=== PATIENT | male | born 1940 | race Caucasian/White ===

== ENCOUNTER 2020-01-04 08:59 | Outpatient (CLI) | payer MEDICARE, OTHER, SELFPAY ==
--- NOTE | ~2020-01-04 | CT_ITS ---
EXAMINATION: CT lumbar spine wo [facility] EXAM DATE: 01/04/2020 09:19 INDICATION: Low back pain, sciatica. Effusion. TECHNIQUE: Spiral CT of the lumbar spine was performed without contrast. Axial, coronal and sagittal images were reviewed. The dose-length product (DLP) for this examination was 475.09 mGy-cm. The e xposure was tailored according to patient size (auto mA exposure control), and iterative reconstructi on (ASIR) was used as additional dose reduction technique. There is no prior study for comparison. FINDINGS: Patient has posterior fusion and laminectomies L1-L5. There is also some solid bone bridgin g of the L2-4 vertebral bodies. There is moderate to severe disc disease at L4-5 and L5-S1, moderate at T12-L1 and L1-2. No lucency surrounding the screw tracks. There is 3 mm retrolisthesis L5 on S1 an d T12 on L1. There are no acute fractures identified. The bladder is severely distended and there is moderate bilateral hydroureteronephrosis. Level by level evaluation: T12-L1: There is a moderate diffuse disc bulge. Facet arthropathy: Moderate. Neural foraminal stenosis: Moderate to severe right, moderate left. Central canal stenosis: Moderate. L1-L2: There is a mild diffuse disc bulge. Facet arthropathy: Fused. Neural foraminal stenosis: No stenosis. Central canal stenosis: No stenosis. Posterior decompression. L2-L3: This level is fused. Facet arthropathy: Fused. Neural foraminal stenosis: No stenosis. Central canal stenosis: No stenosis. Posterior fusion L3-L4: This level is fused. Facet arthropathy: Fused. Neural foraminal stenosis: Moderate left. Central canal stenosis: No stenosis. Posterior decompression L4-L5: There is a moderate diffuse disc bulge. Facet arthropathy: Moderate to severe. Neural foraminal stenosis: Moderate bilateral. Central canal stenosis: Mild. L5-S1: There is a moderate diffuse disc bulge. Facet arthropathy: Moderate. Neural foraminal stenosis: Moderate to severe left, moderate right. Central canal stenosis: Mild. IMPRESSION: 1. Severely distended bladder with moderate bilateral hydroureteronephrosis. Could be result of cotton tipper mei bladder outlet obstruction? Consider consult. 2. Intact fusion L1-L4, laminectomies. 3. Moderate to severe lumbar spondylosis. Reviewed, dictated and finalized at location A. IMPRESSION: 1. Severely distended bladder with moderate bilateral hydroureteronephrosis. C ould be result of chronic bladder outlet obstruction? Consider consult. 2. Intact fusion L1-L4, laminectomies. 3. Moderate to severe lumbar spondylosis.
== END 2020-01-04 09:00 | disposition home or self-care (01) ==
LOC: ANHIMG 09:04
PROVIDERS: PCP Family Medicine; Visit Provider Family Medicine
DX: G89.29 Other chronic pain (principal); M54.41 Lumbago with sciatica, right side; Z98.1 Arthrodesis status; M47.896 Other spondylosis, lumbar region
CPT/HCPCS: 72131

== ENCOUNTER 2020-01-11 06:43 | Emergency (ER) | payer MEDICARE, OTHER, SELFPAY ==
[2020-01-11] VITALS (39 sets, daily range): BP systolic 74–133; BP diastolic 45–68; PULSE 52–66; RESP 12–20; O2SAT 92–100
--- NOTE | ~2020-01-11 | CT_ITS ---
EXAMINATION: CT brain wo con EXAM DATE: 01/11/2020 07:44 INDICATION: Temporary episode unresponsiveness. Dizziness. TECHNIQUE: Spiral CT of the head was performed without contrast. Axial, coronal and sagittal images were reviewed. The dose-length product (DLP) for this examination was 605.33 mGy-cm. The exposure w as tailored according to patient size, and iterative reconstruction (ASIR) was used as additional dos e reduction technique. There is no prior study for comparison. FINDINGS: There is a mass which appears to be most likely extra-axial, overlying the left frontal lob e, measuring up to 4 cm which is heterogeneous in density. This is most likely a meningioma but recom mend nonemergent follow-up evaluation with MRI brain without and with contrast. There is no acute intraparenchymal hemorrhage. No evidence of acute infarction. Please note that in itial head CT has limited sensitivity for small or acute infarctions. There is mild periventricular a nd subcortical hypodensity, nonspecific but probably related to small vessel ischemic disease. Ther e is mild prominence of the sulci and ventricles related to cerebral atrophy. There is intracranial carotid arteriosclerosis. There are no extra-axial collections. There is no mass effect or midline shift. The orbits are unremarkable. Soft tissue is unremarkable. The visualized sinuses and masto id air cells are well aerated. IMPRESSION: 1. Large mass most likely meningioma overlying left frontal lobe. This could be an incidental findin g not related to patient's symptoms reported above. Follow-up nonemergent brain MRI without and with contrast recommended. 2. Chronic age related findings. 3. No acute findings. Reviewed, dictated and finalized at location A. IMPRESSION: 1. Large mass most likely meningioma overlying left frontal lobe. This could b e an incidental finding not related to patient's symptoms reported above. Follo w-up nonemergent brain MRI without and with contrast recommended. 2. Chronic age related findings. 3. No acute findings.
--- NOTE | ~2020-01-11 | XR_ITS ---
EXAMINATION: XR chest 1V EXAM DATE: 01/11/2020 07:51 INDICATION: Syncope. TECHNIQUE: Portable AP frontal chest x-ray was obtained. Comparison is made to prior examination from 08/30/2010. FINDINGS: The lungs are clear. There are no pleural effusions. Cardiac silhouette is prominent but magnified on this AP technique. There is no pneumothorax suspected. The bones and soft tissues are unremarkable. Lumbar fusion hardware. IMPRESSION: No acute cardiopulmonary findings. Reviewed, dictated and finalized at location A.
--- NOTE | 2020-01-11 06:50 | ECG_ITS ---
Measurements Intervals [place] Rate: 55 P: 51 ND: 192 QRS: 42 QRSD: 111 T: 42 QT: 483 QTc: 462 Interpretive Statements SINUS BRADYCARDIA MINIMAL Q WAVES- HIGH LATERAL LEADS ANTEROSEPTAL INFARCT, AGE INDETERMINATE ABNORMAL ECG Electronically Signed On 01-11-2020 6:55:40 CDT by Ricardo Ball D.O.
[2020-01-11 07:07] LABS: Basophils Percent Auto 0.3 % (0.2-1.2); Eosinophils Percent Auto 0.2 % (0-4.4); Hematocrit 38.2 % (42.0-52.0); Hemoglobin 13.4 g/dL (14.0-18.0); Immature Granulocyte Absolute 0.05 K/mm3 (0.00-0.031); Immature Granulocyte Percent A 0.4 % (0-0.5); Lymphocytes Absolute Auto 1.41 K/mm3 (0.9-3.2); Lymphocytes Percent Auto 12.3 % (18.3-44.2); Mean Corpuscular HGB Conc 35.1 g/dl (32-36); Mean Corpuscular Volume 94.1 fl (80-100); Mean Platelet Volume 10.9 fl (7.4-10.4); Monocytes Absolute Auto 0.9 K/mm3 (0.1-0.6); Monocytes Percent Auto 7.7 % (2.6-8.5); Neutrophils Absolute Auto 9.1 K/mm3 (1.3-6.7); Neutrophils Percent Auto 79.1 % (45.5-73.1); Platelet Count Result 197 k/mm3 (150-375); Red Blood Count 4.06 M/mm3 (4.6-6.20); Red Cell Distribution Width 13.4 % (11.5-14.5); White Blood Count 11.5 K/mm3 (4.5-10.0)
[2020-01-11 07:18] LABS: Anion Gap 14.2 mmol/L (7-16); Blood Urea Nitrogen 14 mg/dL (9-20); Calcium 8.8 mg/dL (8.4-10.2); Carbon Dioxide 25 mmol/L (22-30); Chloride 91 mmol/L (98-107); Estimated Glomerular Filt Rate > 60; Glucose 147 mg/dL (75-110); Potassium 4.2 mmol/L (3.4-5.0); Sodium 126 mmol/L (137-145)
[2020-01-11] MEDS: SODIUM CHLORIDE 0.9% IV 1,000 ML 999 ML IV CONT ×2 (07:30→08:39)
--- NOTE | 2020-01-11 07:38 | ED.SYNCOPE ---
HPI - Syncope General Chief Complaint: Syncope Stated Complaint: DIZZY Time Seen by Provider: 01/11/20 07:26 History of Present Illness HPI narrative: Patient presents via EMS with his for a near syncopal episode at home this morning. He was getting up to go to the bathroom and on the way back he felt too weak to get out of the bed. They called for lift assist, and he was diaphoretic and hypotensive. He did not have preceding symptoms. He said he had poor urine output. He wears depends at night. He has had a TURP procedure in the past. He has had no COVID exposure. He has not been sick in the last couple weeks. He does not take a diuretic. His has his med list which includes metoprolol. He said his appetite is poor, but is not losing weight. He has had 3 days of constipation. No cough cold fever or chills. He has a history of umbilical and inguinal hernia, TURP, and lumbar fusion. Does not smoke cigarettes, rarely drinks alcohol, does not do marijuana. He is retired. complaint: felt faint, almost passed out and collapsed Onset (ago): hour(s) Prodromal symptoms: none Context: after urination Injuries sustained associated with event: none Current symptoms: none Treatments prior to arrival: none Related Data Home Medications Medication Instructions Recorded Confirmed tamsulosin 0.4 mg capsule 0.4 mg PO DAILY 04/15/19 12/29/19 Allergies Allergy/AdvReac Type Severity Reaction Status Date / Time No Known Allergies Allergy Verified 01/11/20 06:47 Review of Systems Review of Systems: Narrative: CONSTITUTIONAL: Denies fever, chills, but did have the sweats after he laid down. EYES: Denies visual changes, redness, or discharge. ENT: Denies rhinorrhea, congestion, sore throat, or otalgia. CARDIOVASCULAR: Denies chest pain, palpitations, or edema. RESPIRATORY: Denies cough or dyspnea. GASTROINTESTINAL: Denies abdominal pain, nausea, vomiting, or diarrhea. GENITOURINARY: Denies dysuria or hematuria. SKIN: Denies rash or itching. MUSCULOSKELETAL: Denies back pain, joint pain, or myalgia. NEUROLOGIC: Denies headache, numbness, or weakness. PSYCHIATRIC: Denies anxiety or depression. All systems reviewed & are unremarkable except as noted in HPI and below PMFSH Past Medical History Medical History (Updated 01/11/20 @ 10:08 by Felicitas Mayfield MD) Abnormal fasting glucose BPH without obstruction/lower urinary tract symptoms Cardiomyopathy Chronic low back pain with right-sided sciatica Heart murmur on physical examination Hypothyroidism, unspecified Nocturia Polyp of colon Surgical History Surgical History History of hernia surgery History of lumbar fusion Social History Social History (Updated 01/11/20 @ 07:42 by Felicitas Mayfield MD) Smoking status: Never smoker Alcohol intake: current Substance use: never Exam Narrative: Exam Narrative: GENERAL: Well-appearing, well-nourished, and in no acute distress. HEAD: Normocephalic, atraumatic. EYES: PERRLA and EOMI. ENT: Nares clear, no rhinorrhea or epistaxis. Mucous membranes moist. NECK: Supple. CHEST: Clear to auscultation. No respiratory distress. HEART: Regular rate and rhythm. No murmur heard. Normal peripheral pulses. ABDOMEN: Soft, nontender, nondistended, normal active bowel sounds. EXTREMITIES: Normal range of motion. No edema. SKIN: Warm, dry, no rash. NEURO: No focal deficits. Alert and oriented x3. PSYCH: Normal mood and affect. Course Reevaluation(s) Reevaluation #1: Went back in the room to tell the patient about his left frontal mass. He is never had a CAT scan of his brain before. He asked how long it is been there. I recommended that he have an MRI in the future to further define it. He is unable to provide urine. We will give another liter of normal saline, and encourage oral hydration. Date: 01/11/20 Time: : Consultations Consultation #1: Call Dr. Bo and talk
[2020-01-11 08:04] LABS: Creatine Kinase 104 U/L (55-170)
[2020-01-11 08:06] LABS: INR 1.2; Prothrombin Time 15.2 Seconds (11.1-14.7)
[2020-01-11 08:51] LABS: Troponin I < 0.012 ng/mL (0.000-0.034)
[2020-01-11 09:36] LABS: Add Urine Microscopic? YES; Appearance Urine Cloudy (Clear); Bacteria Urine Trace /hpf; Bilirubin Urine Negative (Negative); Blood Urine 3+ (Negative); Color Urine Yellow (Yellow); Glucose Urine UA Negative (Negative); Ketones Urine Negative (Negative); Leukocyte Esterase Ur 3+ LEU/UL (Negative); Mucus Urine Rare /lpf; Nitrate Urine Positive (Negative); Protein Urine 1+ mg/dL (Negative); RBC Urine >75 /hpf (0-2); Urobilinogen Urine Negative mg/dL (<2.0); WBC Clumps Urine Present /HPF; WBC Urine >75 /hpf
[2020-01-11 11:09] LABS: Troponin I < 0.012 ng/mL (0.000-0.034)
[2020-01-11 11:31] LABS: Total Triiodothyronine (T3) 0.71 NG/ML (0.97-1.69)
== END 2020-01-11 12:03 | disposition home or self-care (01) ==
PROVIDERS: Emergency Medicine; Emergency Provider Emergency Medicine; PCP Family Medicine
DX: R55 Syncope and collapse (principal); E87.1 Hypo-osmolality and hyponatremia; E86.0 Dehydration; N39.0 Urinary tract infection, site not specified; R94.31 Abnormal electrocardiogram [ECG] [EKG]; E03.9 Hypothyroidism, unspecified
CPT/HCPCS: 36415; 70450; 71045; 80048; 81001; 82550; 84439; 84443; 84480; 84484; 85025; 85610; 87077; 87086; 87088; 87186; 93005; 96361; 96365; 99284; J0696; J7030

== ENCOUNTER 2020-01-31 13:47 | Outpatient (CLI) | payer MEDICARE, OTHER, SELFPAY ==
--- NOTE | ~2020-01-31 | MR_ITS ---
EXAMINATION: MR lumbar spine wo [facility] EXAM DATE: 01/31/2020 14:33 INDICATION: Low back pain, history spinal fusion. TECHNIQUE: Multi-sequential, multiplanar MR images of the lumbar spine were obtained without contrast . Sagittal T1, T2, T2 fat saturation images. Axial T2 weighted images. There is no prior study for comparison. FINDINGS: Posterior fusion hardware and laminectomies L1-L4. Moderate to severe disc disease at T10-1 1, T12-L1, L3-S1. There is Moderate at T11-12 and L1-2. Reversal of normal lumbar lordosis. The L2-3 vertebral bodies are have partial bony fusion. There is 3 mm retrolisthesis L5 on S1. The conus medul demario terminates at the L1/2 level and has normal signal intensity and morphology. There are no susp icious marrow signal abnormalities. Paraspinal soft tissue is unremarkable. Level by level evaluation: T12-L1: There is a moderate diffuse disc bulge. Facet arthropathy: Moderate . Ligamentum flavum enlargement. Neural foraminal stenosis: Moderate right, moderate left. Central canal stenosis: Moderate. L1-L2: Disc does not extend beyond the endplate margin. Facet arthropathy: Poorly visualized. Neural foraminal stenosis: No stenosis. Central canal stenosis: No stenosis. Posterior decompression. L2-L3: There is a mild diffuse disc bulge. Facet arthropathy: Poorly visualized. Neural foraminal stenosis: Mild left. Central canal stenosis: No stenosis. Posterior decompression L3-L4: There is a mild diffuse disc bulge. Facet arthropathy: Poorly visualized. Neural foraminal stenosis: Mild to moderate left. Central canal stenosis: No stenosis. Posterior decompression L4-L5: There is a moderate diffuse disc bulge. Facet arthropathy: Moderate to severe. Neural foraminal stenosis: Moderate bilateral. Central canal stenosis: Mild. L5-S1: There is a mild to moderate diffuse disc bulge. Facet arthropathy: Mild to moderate. Neural foraminal stenosis: Moderate bilateral. Central canal stenosis: Mild. IMPRESSION: 1. Surgical changes L1-4. 2. Advanced lumbar spondylosis. Reviewed, dictated and finalized at location B.
== END 2020-01-31 13:48 | disposition home or self-care (01) ==
PROVIDERS: PCP Family Medicine; Visit Provider Orthopaedic Surgery
DX: M47.896 Other spondylosis, lumbar region (principal)
CPT/HCPCS: 72148

== ENCOUNTER → 2020-04-23 12:18 | Outpatient (CLI) | payer MEDICARE, OTHER, SELFPAY ==
--- NOTE | ~2020-04-23 | MR_ITS ---
EXAMINATION: MR brain IAC wo/w con DATE: 04/23/2020 13:28 INDICATION: Dizziness. Intracranial mass. TECHNIQUE: Magnetic resonance imaging (MRI) of the brain, brainstem, and internal auditory canals was performed without and with 14 mL MultiHance intravenous contrast. Sequences included sagittal and ax ial T1-weighted FSE, axial diffusion-weighted FS EPI, axial T2*-weighted GRE, axial T2-weighted FLAIR Propeller, axial T2-weighted Propeller, small rwiiv-ij-lypx coronal FIESTA, small duykl-bz-kvlq merline nal T1-weighted FSE, and small ampov-zf-xqxr axial T1-weighted SPGR. Postcontrast sequences included axial T1-weighted FSE, small scfnf-ml-yefw coronal T1-weighted FSE, and small nzusa-kh-atlz axial T1- weighted SPGR. Apparent diffusion coefficient (ADC) maps were created. COMPARISON: Head CT 01/11/2020 FINDINGS: There is a 4.1 x 4.0 x 3.5 cm enhancing extra-axial mass with dural tails and areas of calc ification overlying left frontal lobe, consistent with a meningioma. There is no acute ischemic infar ct or intracranial hemorrhage. There are scattered areas of nonspecific increased T2-weighted signal intensity in the cerebral white matter. The ventricles are normal in size. There is mild mucosal thic kening in the paranasal sinuses. There are likely changes of ocular lens replacement surgeries. The i nternal auditory canals and inner and middle ears are normal. The mastoid air cells are normal. IMPRESSION: 1. 4.1 cm meningioma overlying left frontal lobe. 2. Moderate nonspecific cerebral white matter disease, which likely represents chronic small vessel i schemic disease. Reviewed, dictated and finalized at location B. [employer] IMPRESSION: 1. 4.1 cm meningioma overlying left frontal lobe. 2. Moderate nonspecific cerebral white matter disease, which likely represents chronic small vessel ischemic disease.
[2020-04-23 12:55] LABS: Estimated Glomerular Filt Rate > 60
== END ==
PROVIDERS: PCP Family Medicine; Visit Provider Family Medicine
DX: G93.89 Other specified disorders of brain (principal); R93.0 Abnormal findings on diagnostic imaging of skull and head, not elsewhere classified
CPT/HCPCS: 70553; A9577

== ENCOUNTER → 2020-11-22 13:21 | Outpatient (CLI) | payer MEDICARE, SELFPAY ==
--- NOTE | ~2020-11-22 | MR_ITS ---
EXAMINATION: MR brain/brain stem wo/w con EXAM DATE: 11/22/2020 14:25 INDICATION: Meningioma. TECHNIQUE: Magnetic resonance imaging (MRI) of the brain/brain stem obtained without contrast. Sagit roberto T1, axial diffusion, gradient echo (T2*), T1, T2, FLAIR sequences obtained. Patient was then inj ected with 14 cc intravenous Multihance contrast. Axial and coronal postcontrast T1 weighted sequence s obtained. Comparison is made to prior examination from 04/23/2020. FINDINGS: Again there is extra-axial mass consistent with meningioma, pushing into displacing left fr ontal lobe brain parenchyma. Round, slightly lobular but well-defined margins measuring up to 4.0 x 3 .8 greatest axial dimensions, unchanged (dimensions reported on prior study at 4.1 x 4.0 x 3.5 cm). N o associated vasogenic edema within the left frontal lobe, indicating that this is indolent, slow-leila wing process, or has stopped growing. No other areas of abnormal enhancement. There is no acute hemorrhage seen on the T2*, a susceptibility sensitive sequence. Flow voids are see n in the cerebral arteries on the T2 weighted sequences consistent with their expected patency. Bilat eral cataract surgery. Mild sinus mucoperiosteal thickening. Mild to moderate microangiopathy in mild cerebral atrophy. Posterior fossa unremarkable. IMPRESSION: Large meningioma overlying left frontal lobe unchanged. Reviewed, dictated and finalized at location A.
[2020-11-22 13:56] LABS: Estimated Glomerular Filt Rate > 60
== END ==
PROVIDERS: PCP Family Medicine
DX: D32.9 Benign neoplasm of meninges, unspecified (principal)
CPT/HCPCS: 70553; A9577

== ENCOUNTER 2021-11-06 11:28 | Outpatient (CLI) | payer MEDICARE, SELFPAY ==
--- NOTE | 2021-11-06 11:34 | ECG_ITS ---
Measurements Intervals [place] Rate: 44 P: -31 MO: 366 QRS: 8 QRSD: 105 T: 13 QT: 478 QTc: 412 Interpretive Statements SINUS BRADYCARDIA MINIMAL Q WAVES- ANTEROLAT/HIGH LAT LEADS BASELINE ARTIFACT- I, II, III, AVR, AVL, AVF ABNORMAL ECG Electronically Signed On 11-06-2021 12:21:23 CDT by Ricarod Ball D.O.
== END 2021-11-06 11:29 | disposition home or self-care (01) ==
PROVIDERS: PCP Family Medicine; Visit Provider Urology
DX: I10 Essential (primary) hypertension (principal); Z01.818 Encounter for other preprocedural examination; R94.31 Abnormal electrocardiogram [ECG] [EKG]
CPT/HCPCS: 93005

== ENCOUNTER 2021-11-14 01:20 | Day surgery (SDC) | payer MEDICARE, SELFPAY ==
[2021-11-06 09:35] VITALS: BMI 24.3
--- NOTE | 2021-11-06 09:43 | PC.NURSE ---
Report to the Outpatient Waiting Room, entrance under the green pavilion located off [facility], at time _0700_ on date _11/14/21_. OR Time: _0900_. - You and your visitor will be asked a series of questions to screen for COVID 19 for your protection. - Only one visitor is allowed at this time. - The patient visitor is requested to leave or wait in car when not with patient. - A mask is required within the hospital. Patients may have clear liquids (water, carbonated beverages, clear teas, apple juice) until 3 hours prior to surgery (0600 AM) with a maximum of 20 ounces. - No food from midnight until time of surgery Take the following medications with a SIP of water the morning of surgery: __LEVOTHYROXINE, METOPROLOL__ Medications to discontinue per physician N/A , Date to take last dose Please no deodorant, or body powder the day of surgery. No jewelry (including any body piercings) or valuables the day of surgery, leave them at home. Please take a shower or bath the night before, or the morning of, surgery with an antibacterial soap. Wear comfortable, loose fitting clothing. - Jewelry must be removed prior to entering the operating room. Rings and piercings that are not removed may be cut off. - The hospital will not accept responsibility for valuables. - Please leave all valuables, including medications, at home the day of surgery. If you are going home after surgery, a licensed driver utility worker must drive you home. - NO public transportation without another adult. - We recommend that an adult stay with you for 24 hours following discharge. - We also recommend that you do not drive, make important decision, drink alcoholic beverages, or take any drugs that were not prescribed by your health care provider for at least 24 hours after your discharge time. Follow any additional instructions given to you from your surgeon. If you or anyone in your household have experienced Covid symptoms in the past week, please notify your surgeon or the nurse liaison at the phone number below for possible testing. Telephone instructions given to ___PT and asked if any additional questions and then verbalized understanding. Patient advised to call surgeon office or pre surgery nurse liaison [phone] if any additional questions.
--- NOTE | 2021-11-07 07:09 | PM.IMHP ---
H&P: HPI History of Present Illness Date/Time: 11/07/21 07:09 Chief Complaint: Difficulty urinating and recurrent urinary tract infections Narrative: pleasant 81-year-old stone who is status post TURP in 2014. He did well for several years and now presents with recurrent difficulty voiding and recurrent urinary tract infections. He did develop urinary retention approximately 6 months ago but that resolved with stopping oxybutynin. He now has residual volumes of approximately 850 cc and has failed to respond to tamsulosin. Have a suspicion of urethral stricture/bladder neck contracture, answer decision to proceed with cystoscopy and urethral dilatation. He is aware the risk including, but not limited to, persistent difficulty voiding, recurrent stricture and hematuria. Review of Systems Cardiovascular: Cardiovascular: Denies chest pain, Denies lightheadedness, Denies palpitations and Denies dyspnea Respiratory: Respiratory: Denies dyspnea Gastrointestinal: Gastrointestinal: Denies diarrhea, Denies nausea and Denies vomiting Genitourinary: Genitourinary: Denies hematuria and Denies dysuria Endocrine: Endocrine: Denies palpitations PMFSH Past Medical History Medical History Abnormal fasting glucose Acute bronchitis BMI 24.0-24.9, adult BMI 25.0-25.9,adult BPH without obstruction/lower urinary tract symptoms Cardiomyopathy Chronic low back pain with right-sided sciatica Contact dermatitis and eczema due to plant Essential (primary) hypertension Frontal mass of brain Glaucoma Heart murmur on physical examination Echocardiogram 04/28/2019 with mild aortic and tricuspid valve regurgitation Hypothyroidism, unspecified Meningioma Nocturia Overactive bladder Polyp of colon Pulmonary asbestosis Urinary retention UTI (urinary tract infection) Surgical History Surgical History History of hernia surgery History of lumbar fusion Family History Family History Father Family history of alcoholism, Onset Age: 68 Mother Cerebrovascular accident, Onset Age: 88 Social History Social History Smoking status: Never smoker Second hand tobacco smoke exposure: No Alcohol intake: current Alcohol use details: STATES MAYBE 1-2 BEERS A MONTH Substance use: never Substance use type: does not use Spiritual care concerns: No Meds Home Medications and Allergies Home Medications Medication Instructions Recorded Confirmed Type tamsulosin 0.4 mg capsule (Flomax) 0.4 mg PO QAM 08/24/21 11/06/21 History cephalexin 500 mg capsule 1 cap HS 11/06/21 11/06/21 History levothyroxine 100 mcg tablet 100 mcg PO QAM 11/06/21 11/06/21 History metoprolol succinate 25 mg 25 mg PO QAM 11/06/21 11/06/21 History tablet,extended release 24 hr Allergies Allergy/AdvReac Type Severity Reaction Status Date / Time No Known Allergies Allergy Verified 11/06/21 09:32 Exam Const: General: no acute distress Resp: Effort & Inspection: normal respiratory effort GI: Inspection: non-distended GI Palp: No abdominal tenderness and No Guarding due to palpation present (GI) Auscultation: normal bowel sounds Assessment and Plan Assessment and plan (1) Urinary retention: Code(s): R33.9 - Retention of urine, unspecified Status: Acute Assessment and Plan: Cystoscopy with urethral dilatation
[2021-11-14] VITALS (8 sets, daily range): BP systolic 100–137; BP diastolic 57–71; PULSE 44–52; RESP 16–20; TEMP 36.1–36.4; O2SAT 94–99
--- NOTE | 2021-11-14 06:31 | WPDHPUPDATE1 ---
History and Physical Update Update Date/Time: 11/14/21 06:31 History and Physical has been reviewed, including an updated exam of the patient. There are NO changes in the patient's condition. Risks, benefits, and alternatives have been discussed and questions answered. Patient agrees to proceed with procedure.
[2021-11-14] MEDS: LACTATED RINGERS 1,000 ML 30 ML IV CONT (07:15)
--- NOTE | 2021-11-14 07:57 | WPDANESEPPF ---
Anes - Initial Pre Proc Eval Procedure: Operation Date: 11/14/21 09:00 Proposed Procedures p Cystoscopy, Urethral Dilatation - Dhaval Bo MD Date/Time: 11/14/21 07:57 Surgeon: Dhaval Bo MD Pre Op Diagnosis: bph Patient Data Age: 81 Gender: M Height: 1.73 m Weight: 70.8 kg Last Vital Signs Temp 36.4 C 11/14/21 07:15 Pulse 51 L 11/14/21 07:15 Resp 18 11/14/21 07:15 BP 113/71 11/14/21 07:15 Pulse Ox 99 11/14/21 07:15 O2 Del Method Room Air 11/14/21 07:15 Allergies Allergy/AdvReac Type Severity Reaction Status Date / Time No Known Allergies Allergy Verified 11/14/21 07:40 Home Medications Medication Instructions Recorded Confirmed Type tamsulosin 0.4 mg capsule (Flomax) 0.4 mg PO QAM 08/24/21 11/06/21 History cephalexin 500 mg capsule 1 cap HS 11/06/21 11/06/21 History levothyroxine 100 mcg tablet 100 mcg PO QAM 11/06/21 11/14/21 History metoprolol succinate 25 mg 25 mg PO QAM 11/06/21 11/14/21 History tablet,extended release 24 hr Patient hx anesthesia problems: none Family hx anesthesia problems: none Results Review: All pre-operative results and documents have been reviewed as part of the pre-operative evaluation. [facility] Past Medical History Medical History Abnormal fasting glucose Acute bronchitis BMI 24.0-24.9, adult BMI 25.0-25.9,adult BPH without obstruction/lower urinary tract symptoms Cardiomyopathy Chronic low back pain with right-sided sciatica Contact dermatitis and eczema due to plant Essential (primary) hypertension Frontal mass of brain Glaucoma Heart murmur on physical examination Echocardiogram 04/28/2019 with mild aortic and tricuspid valve regurgitation Hypothyroidism, unspecified Meningioma Nocturia Overactive bladder Polyp of colon Pulmonary asbestosis Urinary retention UTI (urinary tract infection) Surgical History Surgical History History of hernia surgery History of lumbar fusion Family History Family History Father Family history of alcoholism, Onset Age: 68 Mother Cerebrovascular accident, Onset Age: 88 Social History Social History Smoking status: Never smoker Second hand tobacco smoke exposure: No Alcohol intake: current Alcohol use details: STATES MAYBE 1-2 BEERS A MONTH Substance use: never Substance use type: does not use Living arrangements: with family Spiritual care concerns: No Anes - Eval Final PreProcedure Day of Procedure 11/14/21 07:57 Patient weight: normal Heart: regular rate and rhythm Lungs: clear to auscultation Neurological: alert and oriented Last oral intake: >/= 8 hours ASA classification: II Emergent: no Anesthetic plan: proceed Anesthesia type and monitoring: general and standard monitoring Results Review: All pre-operative results and documents have been reviewed as part of the pre-operative evaluation. Informed Consent: The patient's anesthetic plan and its attendant risks and benefits were discussed with the patient/family/POA. Questions were solicited and answers provided to the satisfaction of the patient/family/POA.
[2021-11-14] MEDS: ceFAZolin 2 GM/D5W 50 ML 2 GM/50 ML BAG IVPB (08:19)
[2021-11-14] MEDS: LIDOCAINE HCL 2% GEL UROJET 10 ML PKG MUCOUS MEM (08:37)
--- NOTE | 2021-11-14 08:44 | W.PM.PROC2 ---
Procedure Note - Detailed Date of Procedure 11/14/21 Pre-op Diagnosis Urethral stricture / bladder neck contracture Post-op Diagnosis Same Procedure Performed Cystoscopy, urethral dilatation Surgeon Dhaval Bo MD Description of Procedure The patient was brought to the operative suite where he was prepped and draped in a routine sterile fashion while in a dorsal lithotomy position after the uneventful induction of a general LMA anesthetic. Cystoscopy was undertaken with a 19F rigid cystoscope. There is a moderately constricting bladder neck contracture with a previously resected prostate.. The prostatic urethral estimated length was 1.0cm. The bladder itself was endoscopically normal without foreign body or neoplasm. The bladder mucosa was without hyperemia. There was a single orthotopic ureteral orifice bilaterally with clear efflux of urine. The bladder muscle, however, is densely trabeculated. Using the Abhishek sounds I dilated the urethra and bladder neck from 14->30F. The bladder was emptied and the patient was taken to the recovery room in good condition Pathology None sent Complications No immediate complications Condition Stable Disposition PACU
== END 2021-11-14 10:56 | disposition home or self-care (01) ==
PROVIDERS: PCP Family Medicine; Visit Provider Urology
PROC: 0T7D8ZZ Dilation of Urethra, Via Natural or Artificial Opening Endoscopic (ICD-10-PCS; CPT 52281; principal; 2021-11-14 09:00)
DX: N35.919 Unspecified urethral stricture, male, unspecified site (principal); N32.0 Bladder-neck obstruction; N40.0 Benign prostatic hyperplasia without lower urinary tract symptoms; I42.9 Cardiomyopathy, unspecified; I10 Essential (primary) hypertension; H40.9 Unspecified glaucoma; E03.9 Hypothyroidism, unspecified; J61 Pneumoconiosis due to asbestos and other mineral fibers; D32.0 Benign neoplasm of cerebral meninges; Z98.1 Arthrodesis status
CPT/HCPCS: 52281; 51702; 81003; 93005; 99283; A9270; J0690; J1100; J2405; J2704; J7120

== ENCOUNTER 2021-11-14 20:48 | Emergency (ER) | payer MEDICARE, SELFPAY ==
[2021-11-14 21:24] VITALS: BP 124/59; PULSE 47; RESP 18; TEMP 36.3; O2SAT 98
--- NOTE | 2021-11-14 21:41 | ED.MALEGU ---
HPI - Male Genitourinary General Chief complaint: Urogenital-Male Stated complaint: urinary retention Time Seen by Provider: 11/14/21 21:34 History of Present Illness HPI Narrative: Patient is an 81-year-old male with a history of chronic urinary retention, thought likely to either stricture or BPH here for evaluation of continued urinary retention. He had a cystoscopy and dilation (14Fr--30Fr) done by Dr. Bo this morning for this issue, but states that he has only passed small amounts of urine and feels as though he is retaining urine. He has follow-up with Dr. Bo next week. Denies dysuria, hematuria, abdominal pain. Related Data Home Medications Medication Instructions Recorded Confirmed cephalexin 500 mg capsule 1 cap HS 11/06/21 11/06/21 levothyroxine 100 mcg tablet 100 mcg PO QAM 11/06/21 11/14/21 metoprolol succinate 25 mg 25 mg PO QAM 11/06/21 11/14/21 tablet,extended release 24 hr Allergies Allergy/AdvReac Type Severity Reaction Status Date / Time No Known Allergies Allergy Verified 11/14/21 07:40 Review of Systems Review of Systems: Gen: Denies fevers or chills Eyes: Denies eye pain or visual change ENT: Denies congestion Respiratory: Denies shortness of breath or cough CV: Denies chest pain or palpitations GI: Denies abdominal pain nausea, emesis or diarrhea : reports urinary retention. Denies burning, urgency, frequency or hematuria Musculoskeletal: Denies back pain or muscle pain Neuro: Denies numbness, tingling, weakness or focal weakness Skin: Denies rash Except as documented, all other systems reviewed and negative [facility] Past Medical History Medical History Abnormal fasting glucose Acute bronchitis BMI 24.0-24.9, adult BMI 25.0-25.9,adult BPH without obstruction/lower urinary tract symptoms Cardiomyopathy Chronic low back pain with right-sided sciatica Contact dermatitis and eczema due to plant Essential (primary) hypertension Frontal mass of brain Glaucoma Heart murmur on physical examination Echocardiogram 04/28/2019 with mild aortic and tricuspid valve regurgitation Hypothyroidism, unspecified Meningioma Nocturia Overactive bladder Polyp of colon Pulmonary asbestosis Urinary retention UTI (urinary tract infection) Surgical History Surgical History History of hernia surgery History of lumbar fusion Family History Family History Father Family history of alcoholism, Onset Age: 68 Mother Cerebrovascular accident, Onset Age: 88 Social History Social History Smoking status: Never smoker Second hand tobacco smoke exposure: No Alcohol intake: current Alcohol use details: STATES MAYBE 1-2 BEERS A MONTH Substance use: never Substance use type: does not use Spiritual care concerns: No Exam Narrative: APPEARANCE: No acute distress, nontoxic, resting in bed EYES: EOMI HEENT: Normocephalic, atraumatic, OMM RESPIRATORY: No respiratory distress Clear to auscultation bilaterally with no rhonchi wheezing or rales. CARDIOVASCULAR: Regular rate and rhythm without murmurs rubs or gallops. ABDOMINAL: Bladder is distended. Soft, nontender, no rebound or guarding MUSCULOSKELETAL: Moves all extremities. No clubbing, cyanosis or edema. NEURO: Awake and alert. Following commands, speech normal, no focal deficits SKIN: Warm, dry. No rashes lesions or abrasions PSYCHIATRIC: Normal affect/mood Course Vital Signs Vital signs: Vital Signs Temperature 97.4 F L 11/14/21 21:24 Pulse Rate 47 L 11/14/21 21:24 Respiratory Rate 18 11/14/21 21:24 Blood Pressure 124/59 L 11/14/21 21:24 Pulse Oximetry 98 11/14/21 21:24 Temperature 97.4 F L 11/14/21 21:24 Pulse Rate 47 L 11/14/21 21:24 Respiratory Rate
[2021-11-14 21:59] LABS: Appearance Urine Clear (Clear); Bilirubin Urine Negative (Negative); Blood Urine Negative (Negative); Color Urine Yellow (Yellow); Glucose Urine UA Negative (Negative); Ketones Urine Negative (Negative); Leukocyte Esterase Ur Negative LEU/UL (Negative); Nitrate Urine Negative (Negative); Protein Urine Negative (Negative); Specific Grav Ur 1.015 (1.001-1.035); Urobilinogen Urine 0.2 mg/dL (<2.0)
[2021-11-14 22:02] LABS: Add Urine Microscopic? NO
== END 2021-11-14 22:40 | disposition home or self-care (01) ==
PROVIDERS: Physician Assistant; Emergency Provider Emergency Medicine; PCP Family Medicine
DX: N40.1 Benign prostatic hyperplasia with lower urinary tract symptoms (principal); R33.8 Other retention of urine; I42.9 Cardiomyopathy, unspecified; I10 Essential (primary) hypertension; E03.9 Hypothyroidism, unspecified; N32.81 Overactive bladder; J61 Pneumoconiosis due to asbestos and other mineral fibers; H40.9 Unspecified glaucoma; Z86.010 Personal history of colon polyps; Z87.440 Personal history of urinary (tract) infections
CPT/HCPCS: 51702; 81003; 99283

== ENCOUNTER 2021-11-23 09:04 | Emergency (ER) | payer MEDICARE, SELFPAY ==
[2021-11-23 09:15] VITALS: BP 105/62; PULSE 55; RESP 20; TEMP 38.2; O2SAT 100
--- NOTE | 2021-11-23 09:39 | ED.MALEGU ---
HPI - Male Genitourinary General Chief complaint: Urogenital-Male Stated complaint: UTI Time Seen by Provider: 11/23/21 09:39 Source: patient, RN notes reviewed and old records reviewed Mode of arrival: ambulatory Limitations: no limitations History of Present Illness HPI Narrative: 81-year-old male presents to the [facility] with fevers, body aches and generalized fatigue Patient was seen on November [address] Bo and had a procedure done. After procedure patient was unable to urinate and was seen in the ER, catheter placed Patient reports fever increased, and body aches since yesterday. Has leg bag on currently. Patient states that he called his insurance company and was told to go to the Urgent [facility]. Related Data Home Medications Medication Instructions Recorded Confirmed cephalexin 500 mg capsule 1 cap HS 11/06/21 11/23/21 levothyroxine 100 mcg tablet 100 mcg PO QAM 11/06/21 11/23/21 metoprolol succinate 25 mg 25 mg PO QAM 11/06/21 11/23/21 tablet,extended release 24 hr tamsulosin 0.4 mg capsule 1 cap PO DAILY 11/23/21 11/23/21 Allergies Allergy/AdvReac Type Severity Reaction Status Date / Time No Known Allergies Allergy Verified 11/23/21 09:19 Review of Systems Review of Systems: All systems reviewed & are unremarkable except as noted in HPI and below Constitutional: Constitutional: Reports as per HPI, Reports chills, Reports fatigue, Reports fever(s) and Reports weakness Eyes: Eyes: Reports no additional eye complaints ENT: Reports system reviewed and no additional complaints, except as documented Cardiovascular: Cardiovascular: Reports no additional cardiovascular complaints Respiratory: Respiratory: Reports no additional respiratory complaints Gastrointestinal: Gastrointestinal: Reports no additional gastrointestinal complaints Musculoskeletal: Musculoskeletal: Reports no additional musculoskeletal complaints Integumentary/Breasts: Skin/Breast: Reports system reviewed and no additional complaints, except as docu Neurologic: Reports system reviewed and no additional complaints, except as documented Psychiatric: Psychiatric: Reports no additional psychiatric complaints Allergic/Immunologic: Allergic/Immunologic: Reports no additional allergic/immunologic complaints [facility] Past Medical History Medical History Abnormal fasting glucose Acute bronchitis BMI 24.0-24.9, adult BMI 25.0-25.9,adult BPH without obstruction/lower urinary tract symptoms Cardiomyopathy Chronic low back pain with right-sided sciatica Contact dermatitis and eczema due to plant Essential (primary) hypertension Frontal mass of brain Glaucoma Heart murmur on physical examination Echocardiogram 04/28/2019 with mild aortic and tricuspid valve regurgitation Hypothyroidism, unspecified Meningioma Nocturia Overactive bladder Polyp of colon Pulmonary asbestosis Urinary retention UTI (urinary tract infection) Surgical History Surgical History History of hernia surgery History of lumbar fusion Family History Family History Father Family history of alcoholism, Onset Age: 68 Mother Cerebrovascular accident, Onset Age: 88 Social History Social History Smoking status: Never smoker Second hand tobacco smoke exposure: No Alcohol intake: current Alcohol use details: STATES MAYBE 1-2 BEERS A MONTH Substance use: never Substance use type: does not use Spiritual care concerns: No Comments At the time of my signature, I reviewed and agree with the nursing past medical, surgical, social, and family history. There is no relevant family history pertinent to the patient complaint. Exam Const: General: healthy appearing, no acute distress and alert Nutritional Appearanc
--- NOTE | 2021-11-23 10:15 | PC.NURSE ---
0925-- 60ml cath tip syringe place at the end of the wills cath tubing to catch fresh urine, informed pt that it may take a little while to collect, and pt is ok with that.
== END 2021-11-23 10:23 | disposition home or self-care (01) ==
PROVIDERS: Emergency Provider Nurse Practitioner; PCP Family Medicine
DX: N39.0 Urinary tract infection, site not specified (principal); I10 Essential (primary) hypertension; H40.9 Unspecified glaucoma; R01.1 Cardiac murmur, unspecified; E03.9 Hypothyroidism, unspecified; J61 Pneumoconiosis due to asbestos and other mineral fibers; N40.1 Benign prostatic hyperplasia with lower urinary tract symptoms
CPT/HCPCS: 81003; 87077; 87086; 87186; 99213; G0463

== ENCOUNTER 2022-04-17 12:30 | Outpatient (RCR) | payer MEDICARE, SELFPAY ==
--- NOTE | 2022-03-20 16:44 | PTOPEVAL1 ---
Assessment and note entered by Keily Moncada, PT Evaluation Information Assessment Status Evaluation Diagnosis lumbago w/ R side sciatica, chronic pain Subjective Information Pt reports is just here because is required to perform MRI Had L1-4 fusion in 2014, had 3 years without pain. Had multiple MDs state therapy would not be helpful with one stating might as well spit into the wind Reported Pain Level Pain Score 2: Self Report Assessment PT Clinical Summary Pt presents w/ c/o low back pain and pain into right hip and down leg at times. Reports always has pain w/ 2/10 being lowest rating and 7/10 being highest rating. Prior hx of L1-4 fusion in 2014. Pt reports he is active, going to the gym multiple times a weak and golfing. Evaluation shows flattened lumbar spine, tight hip flexors, decreased ROM bilat hips w/ tight piriformis, decreased transverse abdominal muscle activation w / rectus abdominus compensation, Trendelenbur gait for R glut med weakness, overall decreased RLE strength including quad, glute med, and anterior tib not following specific myotome or nerve root pattern. Pt will benefit from therapy to address above deficits and reduce pain, and normalize gait pattern. Plan of Care Interventions Hot Pack/Cold Pack,Manual Therapy,Neuro Re- education,Therapeutic Activities,Therapeutic Exercise PT Services Indicated Yes Treatment Frequency and 2x weekly x 8 weeks Duration These treatments will address the objective and functional deficits as defined above. The patient will be advanced safely and appropriately in order for the patient to progress towards his/her prior level of function. Additional exercises will be introduced and as well as a comprehensive home exercise program upon discharge, if needed, ?to ensure carryover of functional gains achieved in the clinic. This treatment plan has been reviewed and agreement upon by the patient.
--- NOTE | 2022-03-20 16:46 | PTOPEVAL1 ---
Assessment and note entered by Keily Moncada, PT Evaluation Information Assessment Status Evaluation Diagnosis lumbago w/ R side sciatica, chronic pain Subjective Information Pt reports is just here because is required to perform MRI Had L1-4 fusion in 2014, had 3 years without pain. Had multiple MDs state therapy would not be helpful with one stating might as well spit into the wind Reported Pain Level Pain Score 2: Self Report Assessment PT Clinical Summary Pt presents w/ c/o low back pain and pain into right hip and down leg at times. Reports always has pain w/ 2/10 being lowest rating and 7/10 being highest rating. Prior hx of L1-4 fusion in 2014. Pt reports he is active, going to the gym multiple times a weak and golfing. Evaluation shows flattened lumbar spine, tight hip flexors, decreased ROM bilat hips w/ tight piriformis, decreased transverse abdominal muscle activation w / rectus abdominus compensation, Trendelenburg gait for R glut med weakness, overall decreased RLE strength including quad, glute med, and anterior tib not following specific myotome or nerve root pattern. Pt will benefit from therapy to address above deficits and reduce pain, and normalize gait pattern. Plan of Care Interventions Electrical Stimulation,Gait Training,Hot Pack/Cold Pack,Manual Therapy,Neuro Re-education, Therapeutic Activities,Therapeutic Exercise PT Services Indicated Yes Treatment Frequency and 2x weekly x 4 weeks Duration These treatments will address the objective and functional deficits as defined above. The patient will be advanced safely and appropriately in order for the patient to progress towards his/her prior level of function. Additional exercises will be introduced and as well as a comprehensive home exercise program upon discharge, if needed, ?to ensure carryover of functional gains achieved in the clinic. This treatment plan has been reviewed and agreement upon by the patient.
--- NOTE | 2022-04-17 16:40 | PTOPDC ---
Assessment and note entered by Lewis Moncada, PT Evaluation Information Assessment Status Discharge Diagnosis Lumbago with sciatica R side Subjective Information Patient reports he knows he has good core strength and leg strength, he is able to golf and workout, but he doesn't like the way he walks. He thinks he needs to just see his surgeon. Reported Pain Level Pain Score 3: Self Report Assessment PT Clinical Summary Wisam is an 82 year old male coming into the clinic for lumbago with sciatica. He has attended 7 session with minimal results. Patient feels like his walking is not improving. He has met his strength goal, but unable to meet other goals. Patient feels he needs to go back to see a surgeon to make the improvements he wants. Discharge from physical therapy. Plan of Care PT Services Indicated No Treatment Frequency and discharge from therapy. Duration
== END 2022-04-18 07:52 | disposition home or self-care (01) ==
LOC: ANHPT 12:30
PROVIDERS: PCP Family Medicine; Visit Provider Nurse Practitioner Family
DX: M54.41 Lumbago with sciatica, right side (principal); G89.29 Other chronic pain
CPT/HCPCS: 97110; 97112; 97163; 97530

== ENCOUNTER 2022-04-27 09:48 | Emergency (ER) | payer MEDICARE, SELFPAY ==
[2022-04-27 10:04] VITALS: BP 140/69; PULSE 40; RESP 18; TEMP 36.1; O2SAT 100
--- NOTE | 2022-04-27 11:00 | ED.MALEGU ---
HPI - Male Genitourinary General Chief complaint: Urogenital-Male Stated complaint: UTI Complications Time Seen by Provider: 04/27/22 11:00 Source: patient Mode of arrival: ambulatory Limitations: no limitations History of Present Illness HPI Narrative: 82-year-old male presents with complaint of difficulty self cathing himself this morning. Reports that he was last able to successfully cath himself around 3:30 a.m.. Is having no urinary symptoms. Denies dysuria, frequency, urgency, blood in urine. Patient has been self cathing himself since about November. Has had 2 urinary tract infections since he 1st started self cathing. He self caths about 6 times a day, waits for pressure in abdomen before cathing himself. Reports that he requires self catheterization due to weak bladder muscles. He sees a urologist for this. He denies nausea vomiting diarrhea. No fever or chills. No back pain or abdominal pain. All systems reviewed and negative except as noted above. Related Data Home Medications Medication Instructions Recorded Confirmed metoprolol succinate 25 mg 25 mg PO QAM 11/06/21 04/27/22 tablet,extended release 24 hr tamsulosin 0.4 mg capsule 1 cap PO DAILY 11/23/21 04/27/22 brimonidine 0.2 %-timolol 0.5 % 1 drp ophthalmic (eye) DIRECTED 04/27/22 04/27/22 eye drops latanoprost 0.005 % eye drops 1 drp ophthalmic (eye) DIRECTED 04/27/22 04/27/22 Allergies Allergy/AdvReac Type Severity Reaction Status Date / Time No Known Allergies Allergy Verified 04/27/22 10:30 Review of Systems Review of Systems: CONSTITUTIONAL: Denies fever, chills, or sweats. EYES: Denies visual changes, redness, or discharge. ENT: Denies rhinorrhea, congestion, sore throat, or otalgia. CARDIOVASCULAR: Denies chest pain, palpitations, or edema. RESPIRATORY: Denies cough or dyspnea. GASTROINTESTINAL: Denies abdominal pain, nausea, vomiting, or diarrhea. GENITOURINARY: Denies dysuria or hematuria. Reports difficulty passing catheter this morning. SKIN: Denies rash or itching. MUSCULOSKELETAL: Denies back pain, joint pain, or myalgia. NEUROLOGIC: Denies headache, numbness, or weakness. PSYCHIATRIC: Denies anxiety or depression. All other systems reviewed are negative, except as documented in HPI. [facility] Past Medical History Medical History (Updated 04/27/22 @ 11:33 by Kaila Delacruz NP) Abnormal fasting glucose Glucose 92 with hemoglobin A1c 5.6 on 04/21/2022. Acute bronchitis Atonic bladder (~11/2021) tonic bladder on testing. Self catheterization 3 times daily and consideration InterStim BMI 24.0-24.9, adult BMI 25.0-25.9,adult BPH without obstruction/lower urinary tract symptoms Cardiomyopathy Chronic low back pain with right-sided sciatica Contact dermatitis and eczema due to plant Essential (primary) hypertension Frontal mass of brain Glaucoma Heart murmur on physical examination Echocardiogram 04/28/2019 with mild aortic and tricuspid valve regurgitation Hiccups (~11/25/21) Hypothyroidism, unspecified TSH 1.79 with free T4 1.9 on 04/21/2022. Meningioma Nocturia PSA 0.4 on 04/21/2022. Overactive bladder Polyp of colon Pulmonary asbestosis Urinary retention UTI (urinary tract infection) Surgical History Surgical History History of hernia surgery History of lumbar fusion Family History Family History Father Family history of alcoholism, Onset Age: 68 Mother Cerebrovascular accident, Onset Age: 88 Social History Social History Smoking status: Never smoker Second hand tobacco smoke exposure: No Alcohol intake: current Alcohol use details: STATES MAYBE 1-2 BEERS A MONTH Substance use: never Substance use type: does not use Spiritual care concerns: No Comments At time of signature, agree with nurs
== END 2022-04-27 11:37 | disposition home or self-care (01) ==
PROVIDERS: Emergency Provider Nurse Practitioner Family; PCP Family Medicine
DX: N39.0 Urinary tract infection, site not specified (principal); I42.9 Cardiomyopathy, unspecified; I10 Essential (primary) hypertension; H40.9 Unspecified glaucoma; E03.9 Hypothyroidism, unspecified
CPT/HCPCS: 81003; 87077; 87086; 87186; 99213; G0463

== ENCOUNTER 2022-05-12 09:07 | Outpatient (CLI) | payer MEDICARE, SELFPAY ==
--- NOTE | ~2022-05-12 | MR_ITS ---
EXAMINATION: MR lumbar spine wo/w con DATE: 05/12/2022 10:26 INDICATION: Back pain. TECHNIQUE: Magnetic resonance imaging (MRI) of the lumbar spine was performed without and with 14 mL MultiHance intravenous contrast. COMPARISON: Lumbar spine MRI 01/31/2020 FINDINGS: There is 8 degrees dextrocurvature of lumbar spine. There is kyphosis of lumbar spine. Ther e is 3 mm retrolisthesis of T12 on L1, 3 mm anterolisthesis of L2 on L3 and L3 on L4, and 3 mm retrol isthesis of L4 on L5 and L5 on S1. There is a chronic compression fracture of T12 with 1/5 loss of he ight. There are changes of posterior fusion procedure from L1 to L4 with pedicle screws. There is sev erely decreased disc height at T12-L1 with endplate remodeling. There is severely decreased disc heig ht at L1-L2, L2-L3, and L3-L4 with interbody fusion. There is severely decreased disc height at L4-L5 and L5-S1 with endplate remodeling. The distal spinal cord signal intensity is normal. The conus med ullaris is at L1-L2. The following disc levels are specifically discussed: T12-L1: The disc is bulging and has an annular fissure. There is severe bilateral facet joint osteoar thritis. There is severe right and moderate left neural foraminal stenosis. There is moderate central canal stenosis. L1-L2: The disc does not extend beyond the endplate margin. There is no facet joint hypertrophy. Ther e is no neural foraminal stenosis. There is no central canal stenosis. There is posterior decompressi on. L2-L3: There is no facet joint hypertrophy. There is no neural foraminal stenosis. There is no centra l canal stenosis. There is posterior decompression. L3-L4: There is no facet joint hypertrophy. There is mild left neural foraminal stenosis. There is mi ld central canal stenosis with posterior decompression. L4-L5: The disc is bulging and has an annular fissure. There is severe bilateral facet joint osteoart hritis. There is moderate bilateral neural foraminal stenosis. There is mild central canal stenosis. L5-S1: The disc is bulging and has an annular fissure. There is severe bilateral facet joint osteoart hritis. There is moderate bilateral neural foraminal stenosis. There is mild central canal stenosis. IMPRESSION: 1. Severe lumbar spondylosis, stable from 01/31/2020. 2. Posterior fusion procedure from L1 to L4. Reviewed, dictated and finalized at location [facility]
== END 2022-05-12 09:08 | disposition home or self-care (01) ==
PROVIDERS: PCP Family Medicine; Visit Provider Family Medicine
DX: M54.41 Lumbago with sciatica, right side (principal); G89.29 Other chronic pain; M47.896 Other spondylosis, lumbar region; Z98.1 Arthrodesis status
CPT/HCPCS: 72158; A9577

== ENCOUNTER → 2022-11-14 11:03 | Outpatient (CLI) | payer MEDICARE, SELFPAY ==
--- NOTE | ~2022-11-14 | MR_ITS ---
EXAMINATION: MR brain/brain stem wo/w con DATE: 11/14/2022 11:49 INDICATION: Meningioma. TECHNIQUE: Magnetic resonance imaging (MRI) of the brain and brainstem was performed without and with 14 mL MultiHance intravenous contrast. COMPARISON: Head CT 01/11/2020, brain MRI 11/22/2020, 04/23/20 FINDINGS: There is no acute ischemic infarct or intracranial hemorrhage. There are scattered areas of nonspecific increased T2-weighted signal intensity in the cerebral white matter. There is a 4.2 x 3. 4 x 3.6 cm enhancing extra-axial mass overlying the left frontal lobe. The ventricles are normal in s ize. There is mild mucosal thickening in the paranasal sinuses. There are likely changes of ocular le ns replacement surgeries. The mastoid air cells are normal. IMPRESSION: 1. 4.2 cm enhancing extra-axial mass overlying the left frontal lobe, stable from 04/23/20, consistent with a meningioma. 2. Stable moderate nonspecific cerebral white matter disease, which likely represents chronic small v essel ischemic disease. Reviewed, dictated and finalized at location A. IMPRESSION: 1. 4.2 cm enhancing extra-axial mass overlying the left frontal lobe, stable fr om 04/23/20, consistent with a meningioma. 2. Stable moderate nonspecific cerebral white matter disease, which likely repr esents chronic small vessel ischemic disease.
== END ==
PROVIDERS: PCP Family Medicine
DX: D32.9 Benign neoplasm of meninges, unspecified (principal); R93.0 Abnormal findings on diagnostic imaging of skull and head, not elsewhere classified
CPT/HCPCS: 70553; A9577

== ENCOUNTER 2023-01-09 08:52 | Emergency (ER) | payer MEDICARE, SELFPAY ==
[2023-01-09 09:03] VITALS: BP 129/65; PULSE 48; RESP 16; TEMP 36.2; O2SAT 99
--- NOTE | 2023-01-09 09:31 | ED.SKABFB ---
HPI - Skin/Abscess/Foreign Bdy General Chief complaint: Eye Problems Stated complaint: Eyes Irritation/Neck Pain Time Seen by Provider: 01/09/23 09:31 Source: patient Mode of arrival: ambulatory Limitations: no limitations History of Present Illness HPI narrative: 82-year-old male presents with complaint redness, itching to Face and neck for 2 days. Patient states recently chucking corn and thinks he has is a reaction to the chemical on the corn. Has not taking any nohx-cne-earxovx medications to treat his symptoms. All systems reviewed and negative except as noted above. Related Data Home Medications Medication Instructions Recorded Confirmed brimonidine 0.2 %-timolol 0.5 % 1 drp ophthalmic (eye) DIRECTED 04/27/22 01/09/23 eye drops latanoprost 0.005 % eye drops 1 drp ophthalmic (eye) DIRECTED 04/27/22 01/09/23 vit A 7,160 unit-vit C 113 mg-vit 1 tablet PO DAILY 05/15/22 01/09/23 E 100 eeai-dqas-hhksow tablet Allergies Allergy/AdvReac Type Severity Reaction Status Date / Time No Known Allergies Allergy Verified 01/09/23 08:54 Review of Systems Review of Systems: CONSTITUTIONAL: Denies fever, chills, or sweats. EYES: Denies visual changes, redness, or discharge. ENT: Denies rhinorrhea, congestion, sore throat, or otalgia. CARDIOVASCULAR: Denies chest pain, palpitations, or edema. RESPIRATORY: Denies cough or dyspnea. GASTROINTESTINAL: Denies abdominal pain, nausea, vomiting, or diarrhea. GENITOURINARY: Denies dysuria or hematuria. SKIN: Reports itchy rash to face and neck. MUSCULOSKELETAL: Denies back pain, joint pain, or myalgia. NEUROLOGIC: Denies headache, numbness, or weakness. PSYCHIATRIC: Denies anxiety or depression. All other systems reviewed are negative, except as documented in HPI. [facility] Past Medical History Medical History (Updated 01/09/23 @ 09:38 by Kaila Delacruz NP) Abnormal fasting glucose Glucose 92 with hemoglobin A1c 5.6 on 04/21/2022. 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 Self catheterization 3 times daily and consideration InterStim BMI 23.0-23.9, adult BMI 24.0-24.9, adult BMI 25.0-25.9,adult BPH without obstruction/lower urinary tract symptoms Cardiomyopathy Chronic low back pain with right-sided sciatica CT myelogram 10/21/2022 with diffuse spondylosis with severe bilateral neuroforaminal stenosis at T12-L1 and moderate to severe neuroforaminal bilateral stenosis at L4-L5 and L5-S1 Contact dermatitis and eczema due to plant Encounter for prostate cancer screening Essential (primary) hypertension Frontal mass of brain Meningioma Glaucoma Heart murmur on physical examination Echocardiogram 04/28/2019 with mild aortic and tricuspid valve regurgitation Hiccups (~11/25/21) Hypothyroidism, unspecified TSH 1.79 with free T4 1.9 on 04/21/2022. Meningioma (~12/2019) 4.2 cm meningioma left frontal lobe unchanged on MRI of the brain 11/14/2022 with chronic small-vessel disease unchanged. Nocturia PSA 0.4 on 04/21/2022. Overactive bladder Polyp of colon Pulmonary asbestosis Urinary retention UTI (urinary tract infection) Surgical History Surgical History History of hernia surgery History of lumbar fusion Family History Family History Father Family history of alcoholism, Onset Age: 68 Mother Cerebrovascular accident, Onset Age: 88 Social History Social History (Updated 05/15/22 @ 13:21 by Sowmya Voss MA) Smoking status: Never smoker Second hand tobacco smoke exposure: No Alcohol intake: current Alcohol use details: STATES MAYBE 1-2 BEERS A MONTH Substance use: never Substance use type: does not use Concerned About Future Housing: Decline to Answer Difficulty Paying Gas/Electric Bills: Decline to Answer Difficulty Paying for Meds: Decline to Answer Currently Unemployed: Decl
== END 2023-01-09 09:43 | disposition home or self-care (01) ==
PROVIDERS: Emergency Provider Nurse Practitioner Family; PCP Family Medicine
DX: R21 Rash and other nonspecific skin eruption (principal); I10 Essential (primary) hypertension; H40.9 Unspecified glaucoma; E03.9 Hypothyroidism, unspecified; J61 Pneumoconiosis due to asbestos and other mineral fibers; D32.0 Benign neoplasm of cerebral meninges
CPT/HCPCS: 99213; G0463

== ENCOUNTER → 2023-01-21 13:57 | Outpatient (CLI) | payer MEDICARE, SELFPAY ==
--- NOTE | ~2023-01-21 | XR_ITS ---
EXAMINATION: XR chest 2V Exam Date/Time: 01/21/2023 14:02 CDT HISTORY: cough 1x week, non smoker no lung history Comparison: 01/11/2020. RESULT: Lines, tubes, and devices: Partially visualized lumbar fusion hardware. Lungs and pleura: Streaky basilar basilar scar/atelectasis. No focal consolidation. Diaphragm eventr ation on the left. Calcified granulomas and hilar nodes Cardiomediastinal silhouette: Mild cardiomegaly. Mild aortic ectasia. Other: No acute osseous or upper abdominal finding. IMPRESSION: No acute cardiopulmonary process. Reviewed, dictated and finalized at location K.
== END ==
PROVIDERS: PCP Family Medicine; Visit Provider Family Medicine
DX: R05.9 Cough, unspecified (principal)
CPT/HCPCS: 71046

== ENCOUNTER 2023-01-24 08:03 | Emergency (ER) | payer MEDICARE, SELFPAY ==
--- NOTE | ~2023-01-24 | XR_ITS ---
EXAMINATION: XR chest 2V DATE: 01/24/2023 08:49 INDICATION: Persistent cough TECHNIQUE: Frontal and lateral views of the chest are obtained COMPARISON: 01/21/2023 FINDINGS: There are minimal airspace opacities of the left lung base. No pleural effusion or pneumoth orax. The cardiomediastinal silhouette is normal. There are partially imaged changes of posterior fus ion and laminectomy of the lumbar spine. There is moderate thoracic spondylosis. IMPRESSION: 1. Minimal left basilar airspace opacity, consistent with atelectasis versus pneumonia. Reviewed, dictated and finalized at location A. IMPRESSION: 1. Minimal left basilar airspace opacity, consistent with atelectasis versus pn eumonia.
--- NOTE | 2023-01-24 08:07 | ED.URI ---
HPI - URI/Sore Throat General Chief Complaint: Upper Respiratory Infection Stated Complaint: cough Time Seen by Provider: 01/24/23 08:24 Source: patient and RN notes reviewed Mode of arrival: ambulatory Limitations: no limitations History of Present Illness HPI Narrative: 82 year old male presents with concern for ongoing cough. He reports he has been coughing for about a week. He reports his primary doctor put him on cefdinir via phone, he saw his primary doctor 2 days after starting the antibiotic when he did a chest x-ray which was negative and started him on steroids. Reports the cough continues without much improvement. Reports he had noticed a decreased in the productiveness of the cough but he is beginning to have a productive cough again. He reports that sometime during this illness he had a sore throat which resolved after using salt water gargles. He denies nasal congestion or sinus pain. Reports mild rhinorrhea. Reports feeling of shortness of breath at occasion. Reports his cough keeps him awake at night. Reports he has tried multiple gruc-fac-ngsgdfn cough suppressants and cold medicines without relief. Reports he had a COVID test that was negative on January 20. MD elicited complaint: cough Related Data Home Medications Medication Instructions Recorded Confirmed brimonidine 0.2 %-timolol 0.5 % 1 drp ophthalmic (eye) DIRECTED 04/27/22 01/21/23 eye drops latanoprost 0.005 % eye drops 1 drp ophthalmic (eye) DIRECTED 04/27/22 01/21/23 vit A 7,160 unit-vit C 113 mg-vit 1 tablet PO DAILY 05/15/22 01/21/23 E 100 jdhw-mkfn-jtpqzu tablet Allergies Allergy/AdvReac Type Severity Reaction Status Date / Time No Known Allergies Allergy Verified 01/24/23 08:27 Review of Systems Review of Systems: CONSTITUTIONAL: Denies malaise, chills, sweats, or fever. EYES: Denies visual changes, redness, or discharge. ENT: Reports rhinorrhea. Denies congestion, sinus pain, otalgia and sore throat. CARDIOVASCULAR: Denies chest pain, palpitations, or edema. RESPIRATORY: Reports productive cough, occasional dyspnea. GASTROINTESTINAL: Denies abdominal pain, nausea, vomiting, diarrhea SKIN: Denies rash or itching. MUSCULOSKELETAL: Denies myalgia. NEUROLOGIC: Denies headache. All systems reviewed & are unremarkable except as noted in HPI and below [facility] Past Medical History Medical History (Updated 01/24/23 @ 09:16 by Aicha Maddox NP) Abnormal fasting glucose Glucose 92 with hemoglobin A1c 5.6 on 04/21/2022. 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 Self catheterization 3 times daily and consideration InterStim BMI 23.0-23.9, adult BMI 24.0-24.9, adult BMI 25.0-25.9,adult BPH without obstruction/lower urinary tract symptoms Cardiomyopathy Chronic low back pain with right-sided sciatica CT myelogram 10/21/2022 with diffuse spondylosis with severe bilateral neuroforaminal stenosis at T12-L1 and moderate to severe neuroforaminal bilateral stenosis at L4-L5 and L5-S1 Contact dermatitis and eczema due to plant Encounter for prostate cancer screening Essential (primary) hypertension Frontal mass of brain Meningioma Glaucoma Heart murmur on physical examination Echocardiogram 04/28/2019 with mild aortic and tricuspid valve regurgitation Hiccups (~11/25/21) Hypothyroidism, unspecified TSH 1.79 with free T4 1.9 on 04/21/2022. Meningioma (~12/2019) 4.2 cm meningioma left frontal lobe unchanged on MRI of the brain 11/14/2022 with chronic small-vessel disease unchanged. Nocturia PSA 0.4 on 04/21/2022. Overactive bladder Polyp of colon Pulmonary asbestosis Urinary retention UTI (urinary tract infection) Surgical History Surgical History History of hernia surgery History of lumbar fusion Family History Family History Father Family history o
[2023-01-24 08:17] VITALS: BP 145/70; PULSE 56; RESP 16; TEMP 36.6; O2SAT 99
== END 2023-01-24 09:26 | disposition home or self-care (01) ==
PROVIDERS: Emergency Provider Nurse Practitioner
DX: J18.1 Lobar pneumonia, unspecified organism (principal); H40.9 Unspecified glaucoma; E03.9 Hypothyroidism, unspecified; J61 Pneumoconiosis due to asbestos and other mineral fibers; I42.9 Cardiomyopathy, unspecified; D49.7 Neoplasm of unspecified behavior of endocrine glands and other parts of nervous system
CPT/HCPCS: 71046; 99213; G0463

== ENCOUNTER 2023-05-09 13:54 | Emergency (ER) | payer MEDICARE, SELFPAY ==
--- NOTE | 2023-05-09 13:56 | ED.MALEGU ---
HPI - Male Genitourinary General Chief complaint: Urogenital-Male Stated complaint: Urinary Problems Source: patient and RN notes reviewed Mode of arrival: ambulatory Limitations: no limitations History of Present Illness HPI Narrative: 83-year-old male presents with concern for problems urinating. He reports he has an atonic bladder and catheterizes himself daily. He reports he could not catheterize himself since 04:30 this morning. He denies general malaise, chills, nausea, vomiting, back pain. Reports bladder pressure. MD Complaint: other (Inability to urinate) Related Data Home Medications Medication Instructions Recorded Confirmed brimonidine 0.2 %-timolol 0.5 % 1 drp ophthalmic (eye) DIRECTED 04/27/22 05/09/23 eye drops latanoprost 0.005 % eye drops 1 drp ophthalmic (eye) DIRECTED 04/27/22 05/09/23 vit A 7,160 unit-vit C 113 mg-vit 1 tablet PO DAILY 05/15/22 05/09/23 E 100 xdlt-adzx-[id number] tablet Allergies Allergy/AdvReac Type Severity Reaction Status Date / Time No Known Allergies Allergy Verified 05/09/23 13:57 Review of Systems Review of Systems: CONSTITUTIONAL: Denies malaise, chills, sweats, or fever. CARDIOVASCULAR: Denies chest pain, palpitations, or edema. RESPIRATORY: Denies cough or dyspnea. GASTROINTESTINAL: Denies abdominal pain, nausea, vomiting, diarrhea GENITOURINARY: Denies dysuria, frequency, urgency, suprapubic pressure. Denies flank pain or hematuria. Reports inability past his catheter SKIN: Denies rash or itching. MUSCULOSKELETAL: Denies back pain or myalgia. All systems reviewed & are unremarkable except as noted in HPI and below [facility] Past Medical History Medical History (Updated 05/09/23 @ 14:28 by Aicha Maddox NP) Abnormal fasting glucose Glucose 92 with hemoglobin A1c 5.6 on 04/21/2022. 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 Self catheterization 3 times daily and consideration InterStim BMI 23.0-23.9, adult BMI 24.0-24.9, adult BMI 25.0-25.9,adult BPH without obstruction/lower urinary tract symptoms Cardiomyopathy Chronic low back pain with right-sided sciatica CT myelogram 10/21/2022 with diffuse spondylosis with severe bilateral neuroforaminal stenosis at T12-L1 and moderate to severe neuroforaminal bilateral stenosis at L4-L5 and L5-S1 Contact dermatitis and eczema due to plant Encounter for prostate cancer screening Essential (primary) hypertension Frontal mass of brain Meningioma Glaucoma Heart murmur on physical examination Echocardiogram 04/28/2019 with mild aortic and tricuspid valve regurgitation Hiccups (~11/25/21) Hypothyroidism, unspecified TSH 1.79 with free T4 1.9 on 04/21/2022. Meningioma (~12/2019) 4.2 cm meningioma left frontal lobe unchanged on MRI of the brain 11/14/2022 with chronic small-vessel disease unchanged. Nocturia PSA 0.4 on 04/21/2022. Overactive bladder Polyp of colon Pulmonary asbestosis Urinary retention UTI (urinary tract infection) Surgical History Surgical History History of hernia surgery History of lumbar fusion Family History Family History Father Family history of alcoholism, Onset Age: 68 Mother Cerebrovascular accident, Onset Age: 88 Social History Social History (Updated 05/15/22 @ 13:21 by Sowmya Voss MA) Smoking status: Never smoker Second hand tobacco smoke exposure: No Alcohol intake: current Alcohol use details: STATES MAYBE 1-2 BEERS A MONTH Substance use: never Substance use type: does not use Concerned About Future Housing: Decline to Answer Difficulty Paying Gas/Electric Bills: Decline to Answer Difficulty Paying for Meds: Decline to Answer Currently Unemployed: Decline to Answer Education: Decline to Answer Difficulty w/ Childcare or Family Care: Decline to Answer
[2023-05-09 14:07] VITALS: BP 127/63; PULSE 51; RESP 16; TEMP 36.2; O2SAT 100
== END 2023-05-09 14:25 | disposition short-term general hospital (02) ==
PROVIDERS: Emergency Provider Nurse Practitioner; PCP Family Medicine
DX: R33.9 Retention of urine, unspecified (principal); N31.2 Flaccid neuropathic bladder, not elsewhere classified; N40.0 Benign prostatic hyperplasia without lower urinary tract symptoms; I10 Essential (primary) hypertension; H40.9 Unspecified glaucoma; R01.1 Cardiac murmur, unspecified; J61 Pneumoconiosis due to asbestos and other mineral fibers; I42.9 Cardiomyopathy, unspecified; D32.0 Benign neoplasm of cerebral meninges
CPT/HCPCS: 99212; G0463

== ENCOUNTER 2023-05-09 14:42 | Emergency (ER) | payer MEDICARE, SELFPAY ==
[2023-05-09 15:17] LABS: Appearance Urine Clear (Clear); Bilirubin Urine Negative (Negative); Blood Urine Negative (Negative); Color Urine Yellow (Yellow); Glucose Urine UA Negative (Negative); Ketones Urine Negative (Negative); Leukocyte Esterase Ur Negative LEU/UL (Negative); Nitrate Urine Negative (Negative); Protein Urine Negative (Negative); Specific Grav Ur 1.011 (1.001-1.035); Urobilinogen Urine 0.2 mg/dL (<2.0); pH Urine 7.5 (5.0-9.0)
[2023-05-09 15:24] LABS: Add Urine Microscopic? NO
--- NOTE | 2023-05-09 15:50 | ED.MALEGU ---
HPI - Male Genitourinary General Chief complaint: Urogenital-Male Stated complaint: cant urinate Time Seen by Provider: 05/09/23 15:10 History of Present Illness HPI Narrative: Patient is an 83-year-old male who presents ER with difficulty urinating. He uses a self catheterization over last 2 years. He was unable to pass the catheter this afternoon and was having lower abdominal pain/ pressure. no fevers or chills or sweats. No cloudy urine. He follows with Dr. Bo. Related Data Home Medications Medication Instructions Recorded Confirmed brimonidine 0.2 %-timolol 0.5 % 1 drp ophthalmic (eye) DIRECTED 04/27/22 05/09/23 eye drops latanoprost 0.005 % eye drops 1 drp ophthalmic (eye) DIRECTED 04/27/22 05/09/23 vit A 7,160 unit-vit C 113 mg-vit 1 tablet PO DAILY 05/15/22 05/09/23 E 100 yxum-jcra-bjcuns tablet Allergies Allergy/AdvReac Type Severity Reaction Status Date / Time No Known Allergies Allergy Verified 05/09/23 13:57 [facility] Past Medical History Medical History (Updated 05/09/23 @ 15:52 by Luis F Wright MD) Abnormal fasting glucose Glucose 92 with hemoglobin A1c 5.6 on 04/21/2022. 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 Self catheterization 3 times daily and consideration InterStim BMI 23.0-23.9, adult BMI 24.0-24.9, adult BMI 25.0-25.9,adult BPH without obstruction/lower urinary tract symptoms Cardiomyopathy Chronic low back pain with right-sided sciatica CT myelogram 10/21/2022 with diffuse spondylosis with severe bilateral neuroforaminal stenosis at T12-L1 and moderate to severe neuroforaminal bilateral stenosis at L4-L5 and L5-S1 Contact dermatitis and eczema due to plant Encounter for prostate cancer screening Essential (primary) hypertension Frontal mass of brain Meningioma Glaucoma Heart murmur on physical examination Echocardiogram 04/28/2019 with mild aortic and tricuspid valve regurgitation Hiccups (~11/25/21) Hypothyroidism, unspecified TSH 1.79 with free T4 1.9 on 04/21/2022. Meningioma (~12/2019) 4.2 cm meningioma left frontal lobe unchanged on MRI of the brain 11/14/2022 with chronic small-vessel disease unchanged. Nocturia PSA 0.4 on 04/21/2022. Overactive bladder Polyp of colon Pulmonary asbestosis Urinary retention UTI (urinary tract infection) Surgical History Surgical History History of hernia surgery History of lumbar fusion Family History Family History Father Family history of alcoholism, Onset Age: 68 Mother Cerebrovascular accident, Onset Age: 88 Social History Social History (Updated 05/15/22 @ 13:21 by Sowmya Voss MA) Smoking status: Never smoker Second hand tobacco smoke exposure: No Alcohol intake: current Alcohol use details: STATES MAYBE 1-2 BEERS A MONTH Substance use: never Substance use type: does not use Concerned About Future Housing: Decline to Answer Difficulty Paying Gas/Electric Bills: Decline to Answer Difficulty Paying for Meds: Decline to Answer Currently Unemployed: Decline to Answer Education: Decline to Answer Difficulty w/ Childcare or Family Care: Decline to Answer Living arrangements: with family Spiritual care concerns: No Exam Narrative: GENERAL: Well-appearing, well-nourished, and in no acute distress. HEAD: Normocephalic, atraumatic. ENT: Mucous membranes moist. ABDOMEN: Soft, nontender, nondistended. EXTREMITIES: Normal range of motion. No edema. SKIN: Warm, dry, no rash. NEURO: Alert and oriented x3. PSYCH: Normal mood and affect. Course Course Emergency Course: Patient resting comfortably. Ibanez placed. Discharge home. MDM - Male Genitourinary Lab Data Labs: Lab Results 05/09/23 Range/Units 15:11 Urine Color Yellow (Yellow) Urine Appearance Clear
[2023-05-09 16:56] VITALS: BP 130/84; PULSE 84; RESP 16; O2SAT 99
== END 2023-05-09 16:57 | disposition home or self-care (01) ==
PROVIDERS: Emergency Provider Emergency Medicine; PCP Family Medicine
DX: R33.9 Retention of urine, unspecified (principal); I42.9 Cardiomyopathy, unspecified; I10 Essential (primary) hypertension; E03.9 Hypothyroidism, unspecified; J61 Pneumoconiosis due to asbestos and other mineral fibers; H40.9 Unspecified glaucoma; D32.0 Benign neoplasm of cerebral meninges; N31.2 Flaccid neuropathic bladder, not elsewhere classified; N32.81 Overactive bladder; Z98.1 Arthrodesis status; Z87.440 Personal history of urinary (tract) infections; Z86.010 Personal history of colon polyps
CPT/HCPCS: 51702; 81003; 99283

== ENCOUNTER 2023-10-15 09:36 | Outpatient (CLI) | payer MEDICARE, SELFPAY ==
--- NOTE | ~2023-10-15 | MR_ITS ---
MRI of the lumbar spine Clinical History: Radiculopathy Technique: Axial T2-weighted images, and sagittal T1-weighted, T2-weighted, and STIR images were acqu ired. COMPARISON: 05/12/2022 Findings: Posterior fusion from L1 through L4 is again present, with bilateral rods and intrapedicula r screws, as well as associated susceptibility artifact. There are laminectomy defects at L1, L2, L3, and L4. Osseous alignment is unchanged. No acute fracture seen. There are reactive marrow signal osman nges about the T12-L1 disc space due to severe degenerative disc disease at this level. There is grad e 1 retrolisthesis of T12 over L1, unchanged. At L1-L2, there is severe degenerative disc narrowing. No spinal canal stenosis. There is probable mo derate right neural foraminal narrowing. Left neural foramen probably preserved. At L2-L3, there is fusion across the disc space. No spinal canal stenosis. There is probable mild raisa ateral neural foraminal narrowing. At L3-L4, there is partial fusion across the disc space. No spinal canal stenosis. There is probable severe left neural foraminal narrowing and mild right neural foraminal narrowing. At L4-L5, there is severe degenerative disc narrowing. There is severe facet arthropathy. No central canal stenosis. There is probable severe bilateral neural foraminal narrowing. At L5-S1, there is severe degenerative disc narrowing and severe facet arthropathy. No central canal stenosis. There is severe bilateral neural foraminal narrowing. Paravertebral soft tissues are unremarkable aside from expected postoperative change. Impression: Stable postoperative changes related to posterior fusion from L1 through L4. Moderate to advanced underlying degenerative spondylosis, as detailed above. There is severe neural f oraminal narrowing bilaterally at L4-L5 and L5-S1 in particular. Osseous alignment is unchanged from prior exam. Reviewed, dictated and finalized at location . Impression: Stable postoperative changes related to posterior fusion from L1 through L4. Moderate to advanced underlying degenerative spondylosis, as detailed above. Th ere is severe neural foraminal narrowing bilaterally at L4-L5 and L5-S1 in part icular. Osseous alignment is unchanged from prior exam.
== END 2023-10-15 09:37 ==
LOC: MICIMG 09:38
PROVIDERS: PCP Family Medicine; Visit Provider Nurse Practitioner Family
DX: M47.26 Other spondylosis with radiculopathy, lumbar region (principal)
CPT/HCPCS: 72148

== ENCOUNTER 2024-02-26 22:21 | Emergency (ER) | payer MEDICARE, SELFPAY ==
[2024-02-26 22:24] VITALS: BP 150/86; PULSE 60; RESP 18; TEMP 36.1; O2SAT 100
[2024-02-26 22:57] VITALS: BP 163/81; PULSE 62; RESP 14; O2SAT 97
[2024-02-26 23:01] LABS: Add Urine Microscopic? YES; Appearance Urine Clear (Clear); Bacteria Urine None Seen /hpf; Bilirubin Urine Negative (Negative); Blood Urine Negative (Negative); Color Urine Yellow (Yellow); Glucose Urine UA Negative (Negative); Ketones Urine Negative (Negative); Leukocyte Esterase Ur 2+ LEU/UL (Negative); Nitrate Urine Negative (Negative); Non Pathogenic Casts 0-2; Protein Urine Negative (Negative); RBC Urine 0-2 /hpf (0-2); Specific Grav Ur 1.006 (1.001-1.035); Squamous Epithelial Cell Urine None Seen /hpf (Few); Urobilinogen Urine 0.2 mg/dL (<2.0); pH Urine 7.5 (5.0-9.0)
--- NOTE | 2024-02-26 23:01 | ED.MALEGU ---
HPI - Male Genitourinary General Chief complaint: Urogenital-Male Stated complaint: Haven't been able to urinate since 1500 Time Seen by Provider: 02/26/24 22:25 History of Present Illness HPI Narrative: 83-year-old male who regularly self caths presents here as he has not been able to get his catheter in for the last 7 hours. Having some abdominal distension and discomfort but otherwise no pain anywhere Related Data Home Medications Medication Instructions Recorded Confirmed brimonidine 0.2 %-timolol 0.5 % 1 drp ophthalmic (eye) DIRECTED 04/27/22 02/23/24 eye drops latanoprost 0.005 % eye drops 1 drp ophthalmic (eye) DIRECTED 04/27/22 02/23/24 vit A 7,160 unit-vit C 113 mg-vit 1 tablet PO DAILY 05/15/22 02/23/24 E 100 avzv-bxzb-azcsfi tablet finasteride 5 mg tablet 5 mg PO DAILY 05/24/23 02/23/24 Allergies Allergy/AdvReac Type Severity Reaction Status Date / Time No Known Allergies Allergy Verified 02/26/24 22:28 Review of Systems Review of Systems: All systems reviewed & are unremarkable except as noted in HPI and below [facility] Past Medical History Medical History (Updated 02/27/24 @ 00:09 by Flower Brown MD) Abnormal fasting glucose Glucose 92 with hemoglobin A1c 5.6 on 04/21/2022. Fasting glucose 98 with hemoglobin A1c 5.4 on 05/12/2023. 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 Self catheterization 3 times daily and consideration InterStim BMI 23.0-23.9, adult BMI 24.0-24.9, adult BMI 25.0-25.9,adult BPH with urinary obstruction BPH without obstruction/lower urinary tract symptoms Cardiomyopathy Chronic low back pain with right-sided sciatica CT myelogram 10/21/2022 with diffuse spondylosis with severe bilateral neuroforaminal stenosis at T12-L1 and moderate to severe neuroforaminal bilateral stenosis at L4-L5 and L5-S1. MRI lumbar spine 10/15/2023 with fusion L1 through L4 with moderate to severe spondylosis. Severe neural foraminal narrowing bilaterally at L4-L5 and L5-S1. Contact dermatitis and eczema due to plant Encounter for prostate cancer screening PSA 0.38 on 05/12/2023. Essential (primary) hypertension Frontal mass of brain Meningioma Glaucoma Heart murmur on physical examination Echocardiogram 04/28/2019 with mild aortic and tricuspid valve regurgitation Hiccups (~11/25/21) Hypothyroidism, unspecified TSH 1.79 with free T4 1.9 on 04/21/2022. TSH 2.38 with free T4 at 1.3 on 05/12/2023. Itchy skin (~09/2023) Anterior neck bilaterally without rash resolved with prednisone Meningioma (~12/2019) 4.2 cm meningioma left frontal lobe unchanged on MRI of the brain 11/14/2022 with chronic small-vessel disease unchanged. Nocturia PSA 0.4 on 04/21/2022. Overactive bladder Polyp of colon Pulmonary asbestosis Urinary retention UTI (urinary tract infection) Surgical History Surgical History History of hernia surgery History of lumbar fusion Family History Family History Father Family history of alcoholism, Onset Age: 68 Mother Cerebrovascular accident, Onset Age: 88 Social History Social History (Updated 02/23/24 @ 09:18 by Caity Begum [facility]) Smoking status: Never smoker Second hand tobacco smoke exposure: No Alcohol intake: current Alcohol use details: STATES MAYBE 1-2 BEERS A MONTH Substance use: never Substance use type: does not use Do You Feel Safe in your Home?: Yes Lack of Transportation: No Lack of Food: Never True Current Housing: I Have Housing Concerned About Future Housing: No Difficulty Paying Gas/Electric Bills: No Difficulty Paying for Meds: No Currently Unemployed: No Education: High School Diploma/GED Difficulty w/ Childcare or Family Care: No Living arrangements: with family Occupation/Education: retired Additional occupation/education
[2024-02-27 00:18] VITALS: BP 156/73; PULSE 51; RESP 14; TEMP 36.6; O2SAT 98
== END 2024-02-27 00:19 | disposition home or self-care (01) ==
PROVIDERS: Emergency Provider Emergency Medicine; PCP Family Medicine
DX: N40.1 Benign prostatic hyperplasia with lower urinary tract symptoms (principal); R33.8 Other retention of urine; N31.2 Flaccid neuropathic bladder, not elsewhere classified; N40.0 Benign prostatic hyperplasia without lower urinary tract symptoms; N32.81 Overactive bladder; I42.9 Cardiomyopathy, unspecified; I10 Essential (primary) hypertension; E03.9 Hypothyroidism, unspecified; J61 Pneumoconiosis due to asbestos and other mineral fibers; H40.9 Unspecified glaucoma; Z98.1 Arthrodesis status; Z86.010 Personal history of colon polyps; Z87.440 Personal history of urinary (tract) infections
CPT/HCPCS: 51702; 81001; 87086; 87088; 99283

== ENCOUNTER 2024-03-02 10:03 | Outpatient (CLI) | payer MEDICARE, SELFPAY ==
--- NOTE | ~2024-03-02 | MR_ITS ---
EXAMINATION: MR shoulder LT wo con DATE: 03/02/2024 10:58 INDICATION: Left shoulder pain and limited range of motion post fall 2 weeks prior TECHNIQUE: Magnetic resonance imaging (MRI) of the left shoulder was performed without intravenous co ntrast. Sequences included axial PD-weighted FS FSE, coronal oblique PD-weighted FS FSE, coronal obli que T2-weighted FS FSE, sagittal PD-weighted FS FSE, and sagittal T1-weighted SE. COMPARISON: Radiograph dated 02/23/2024 FINDINGS: Coracoacromial arch: The acromion undersurface is curved in morphology (type II). Normal variant unfused the subacromial o s acromiale. The coracoacromial ligament is normal. Mild acromioclavicular osteoarthritis. Rotator cuff: Moderate and subscapularis and supraspinatus tendinopathy and mild infraspinatus tendinopathy. There is a full-thickness tear involving the entire supraspinatus tendon and small portion of the anterior most infraspinatus tendon. The tear occurs proximally 1 cm from the footplate and there is 1.5 cm med ial retraction. The tear extends anteriorly across the rotator cuff interval to involve the cephalad two thirds of the lesser tuberosity footplate of the subscapularis tendon. The subscapularis tear mar gin is retracted up to 3 cm medial from the lesser tuberosity footplate. The teres minor tendon is no rmal. Likely reactive feathery muscular edema in the supraspinatus and subscapularis muscle bellies. No fatty atrophy of the rotator cuff muscles which along with the prominent edema suggests the tears are recent. Biceps tendon, glenoid labrum and glenohumeral cartilage: There is moderate tendinopathy of the intra-articular long head biceps tendon which appears thickened with mild increased signal at the level of the intertubercular groove. There is attenuation of the i ntra-articular portion of long head biceps tendon consistent with partial thickness tear which appear s to occur at the level of the cephalad aspect of the intertubercular groove. The anteroinferior vimal oid labrum appears globular with mild increased signal between the glenoid and the base of the labrum consistent with labral tear/degeneration. The remainder of the labrum appears to remain normal. Mild glenohumeral osteoarthritis with mild partial-thickness cartilage loss with smooth chondral surface along the cephalad third of the glenoid. Additional partial thickness cartilage loss along the infero medial rim of the humeral head and more extensively at the superomedial and cephalad aspect of the hu meral head. Fluid: Moderate-sized glenohumeral joint effusion which distends the recess of the joint millimeters posteri veronica. There is also extension of fluid through the full-thickness rotator cuff tear defect into the s ubacromial/subdeltoid bursa. There is some fluid tenosynovitis in the long head biceps tendon sheath. No loose osteochondral bodies. Bones: No fracture or pathologic marrow replacing process. Mild cystic change at the superior facet of the g reater tuberosity likely related to chronic rotator cuff disease. IMPRESSION: 1. Likely subacute full-thickness rotator cuff tear involving the entire supraspinatus tendon, cephal ad two thirds of the subscapularis tendon and small portion of the anterior most infraspinatus tendon . 2. Moderate tendinopathy of the long head biceps tendon with partial-thickness tear at the cephalad a spect of the intertubercular groove. 3. Mild glenohumeral osteoarthritis with tear/degeneration of the anteroinferior glenoid labrum. 4. Normal variant unfused meso acromial os acromiale. Reviewed, dictated and finalized at location B. IMPRESSION: 1. Likely subacute full-thickness rotator cuff tear involving the entire supras pinatus tendon, cephalad two thirds of the subscapularis tendon and small por
== END 2024-03-02 10:04 | disposition home or self-care (01) ==
LOC: GOSHIMG 10:04
PROVIDERS: PCP Family Medicine; Visit Provider Orthopaedic Surgery
DX: M19.012 Primary osteoarthritis, left shoulder (principal)
CPT/HCPCS: 73221

== ENCOUNTER 2024-03-16 10:21 | Outpatient (CLI) | payer MEDICARE, SELFPAY ==
--- NOTE | 2024-03-16 10:30 | ECG_ITS ---
Test Date: 2024-03-16 10:35:07 Measurements Intervals [place] Rate: 42 P: -3 [place]: 175 QRS: 8 QRSD: 121 T: 14 QT: 510 QTc: 428 Interpretive Statements MARKED SINUS BRADYCARDIA ANTEROLATERAL MYOCARDIAL INFARCTION [40+ ms Q WAVE IN I/aVL/V3-V6], OF INDETERMINATE AGE ABNORMAL ECG No previous ECG available for comparison Electronically Signed On 03-16-2024 14:06:14 CDT by Todd Whitlock M.D.
== END 2024-03-16 10:22 | disposition home or self-care (01) ==
LOC: ANHSURGERY 10:25
PROVIDERS: PCP Family Medicine; Visit Provider Orthopaedic Surgery
DX: I10 Essential (primary) hypertension (principal); Z01.818 Encounter for other preprocedural examination; R94.31 Abnormal electrocardiogram [ECG] [EKG]
CPT/HCPCS: 93005

== ENCOUNTER 2024-03-21 02:08 | Day surgery (SDC) | payer MEDICARE, SELFPAY ==
[2024-03-15 13:32] VITALS: BMI 24.3
--- NOTE | 2024-03-15 13:36 | PC.NURSE ---
Report to the Outpatient Waiting Room, entrance under the green pavilion located off [facility], at time _0800_ on date _[id number]_. Planned Procedure Time: _1000_.? Time changes happen often and if your time is changed the preop area will call you the afternoon before. - You and your visitor will be asked to self-screen and do not enter if you have any COVID symptoms. Please call surgeon if you need to reschedule. - A mask is optional within the hospital at this time. Patients may have clear liquids (water, carbonated beverages, clear teas, apple juice) until 3 hours prior to surgery with a maximum of 20 ounces. - No food from midnight until time of surgery and no smoking Take only the following medications with a SIP of water on the morning of surgery: __Metoprolol, Duloxetine, Levothyroxine and eye drops. DO NOT STOP ANY OF YOUR OTHER PRESCRIPTION MEDICATIONS PRIOR TO SURGERY EXCEPT THE FOLLOWING Medications to discontinue per physician __Vitamins and supplements Date to take last nqdv____[id number] Please no make-up, nail haitian, hairspray, perfume, deodorant, or body powder the day of surgery.? No jewelry (including any body piercings) or valuables the day of surgery, leave them at home.? Please take a shower or bath the night before, or the morning of, surgery with an antibacterial soap.? Wear comfortable, loose fitting clothing.? - Jewelry must be removed prior to entering the operating room.? Rings and piercings that are not removed may be cut off. - The hospital will not accept responsibility for valuables.? - Please leave all valuables, including medications, at home the day of surgery. If you are going home after surgery, a licensed driver license examiner must drive you home.? - NO public transportation without another adult if you receive anesthesia. - We recommend that an adult stay with you for 24 hours following discharge. - We also recommend that you do not drive, make important decision, drink alcoholic beverages, or take any drugs that were not prescribed by your health care provider for at least 24 hours after your discharge time. Follow any additional instructions given to you from your surgeon. Telephone instructions given to __Wisam__and asked if any additional questions and then verbalized understanding. Patient advised to call surgeon office or pre surgery nurse liaison [phone] if any additional questions
--- NOTE | 2024-03-17 07:35 | PM.IMHP ---
H&P: HPI History of Present Illness Date/Time: 03/17/24 07:35 Chief Complaint: Patient has rotator cuff tear left. Fell on now is unable raises arm. Has a complete tear inability to use the arm well. He cannot actively raise it above the horizontal. Review of Systems Musculoskeletal: Musculoskeletal: Reports arthralgias, Reports joint swelling and Reports stiffness [facility] Past Medical History Medical History Abnormal fasting glucose Glucose 92 with hemoglobin A1c 5.6 on 04/21/2022. Fasting glucose 98 with hemoglobin A1c 5.4 on 05/12/2023. 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 Self catheterization 3 times daily and consideration InterStim BMI 23.0-23.9, adult BMI 24.0-24.9, adult BMI 25.0-25.9,adult BPH with urinary obstruction BPH without obstruction/lower urinary tract symptoms Cardiomyopathy Chronic low back pain with right-sided sciatica CT myelogram 10/21/2022 with diffuse spondylosis with severe bilateral neuroforaminal stenosis at T12-L1 and moderate to severe neuroforaminal bilateral stenosis at L4-L5 and L5-S1. MRI lumbar spine 10/15/2023 with fusion L1 through L4 with moderate to severe spondylosis. Severe neural foraminal narrowing bilaterally at L4-L5 and L5-S1. Contact dermatitis and eczema due to plant Encounter for prostate cancer screening PSA 0.38 on 05/12/2023. Essential (primary) hypertension Frontal mass of brain Meningioma Glaucoma Heart murmur on physical examination Echocardiogram 04/28/2019 with mild aortic and tricuspid valve regurgitation Hiccups (~11/25/21) Hypothyroidism, unspecified TSH 1.79 with free T4 1.9 on 04/21/2022. TSH 2.38 with free T4 at 1.3 on 05/12/2023. Itchy skin (~09/2023) Anterior neck bilaterally without rash resolved with prednisone Meningioma (~12/2019) 4.2 cm meningioma left frontal lobe unchanged on MRI of the brain 11/14/2022 with chronic small-vessel disease unchanged. Nocturia PSA 0.4 on 04/21/2022. Overactive bladder Polyp of colon Pulmonary asbestosis Urinary retention UTI (urinary tract infection) Surgical History Surgical History History of hernia surgery History of lumbar fusion Family History Family History Father Family history of alcoholism, Onset Age: 68 Mother Cerebrovascular accident, Onset Age: 88 Social History Social History (Updated 03/08/24 @ 10:30 by MARGARITA Price) Smoking status: Never smoker Second hand tobacco smoke exposure: No Alcohol intake: current Alcohol use details: STATES MAYBE 1-2 BEERS A MONTH Substance use: never Substance use type: does not use Do You Feel Safe in your Home?: Yes Lack of Transportation: No Lack of Food: Never True Current Housing: Decline to Answer Concerned About Future Housing: Decline to Answer Difficulty Paying Gas/Electric Bills: Decline to Answer Difficulty Paying for Meds: Decline to Answer Currently Unemployed: Decline to Answer Education: Decline to Answer Difficulty w/ Childcare or Family Care: Decline to Answer Living arrangements: with family Occupation/Education: retired Additional occupation/education comments: [email or web address] Gender identity (if verbalized by the patient): Male Spiritual care concerns: No Meds Home Medications and Allergies Home Medications Medication Instructions Recorded Confirmed Type brimonidine 0.2 %-timolol 0.5 % 1 drp ophthalmic (eye) DIRECTED 04/27/22 03/15/24 History eye drops latanoprost 0.005 % eye drops 1 drp ophthalmic (eye) DIRECTED 04/27/22 03/15/24 History vit A 7,160 unit-vit C 113 mg-vit 1 tablet PO DAILY 05/15/22 03/15/24 History E 100 mpvi-rips-[id number] tablet finasteride 5 mg tablet 5 mg PO DAILY 05/24/23 03/15/24 History metoprolol s
[2024-03-21] VITALS (10 sets, daily range): BP systolic 117–152; BP diastolic 71–85; PULSE 49–57; RESP 10–16; TEMP 35.9–36.4; O2SAT 94–100
--- NOTE | 2024-03-21 08:55 | WPDANESEPPF ---
Anes - Initial Pre Proc Eval Procedure: Operation Date: 03/21/24 10:00 Proposed Procedures p Left Shoulder Arthroscopy, Left Rotator Cuff Repair with Distal Clavicle Excision - Sin Panchal MD Date/Time: 03/21/24 08:55 Surgeon: Sin Panchal MD Pre Op Diagnosis: Left Rot Cuff Tear A C Arthritis Patient Data Age: 83 Gender: M Height: 1.7 m Weight: 70.5 kg Allergies Allergy/AdvReac Type Severity Reaction Status Date / Time No Known Allergies Allergy Verified 03/21/24 08:48 Home Medications Medication Instructions Recorded Confirmed Type brimonidine 0.2 %-timolol 0.5 % 1 drp ophthalmic (eye) DIRECTED 04/27/22 03/15/24 History eye drops latanoprost 0.005 % eye drops 1 drp ophthalmic (eye) DIRECTED 04/27/22 03/21/24 History vit A 7,160 unit-vit C 113 mg-vit 1 tablet PO DAILY 05/15/22 03/15/24 History E 100 cbwd-ecdk-rrdnyf tablet finasteride 5 mg tablet 5 mg PO DAILY 05/24/23 03/15/24 History metoprolol succinate 25 mg 12.5 mg PO QAM #90 tabs 05/28/23 03/21/24 Rx tablet,extended release 24 hr levothyroxine 100 mcg tablet 100 mcg PO QAM #90 tabs 02/01/24 03/21/24 Rx duloxetine 60 mg capsule,delayed 60 mg PO DAILY #90 caps 02/29/24 03/21/24 Rx release cranberry 500 mg capsule 500 mg PO DAILY 03/15/24 03/15/24 History tamsulosin 0.4 mg capsule 0.4 mg PO HS 03/15/24 03/15/24 History vibegron 75 mg tablet (Gemtesa) 75 mg PO DAILY 03/15/24 03/15/24 History Patient hx anesthesia problems: none Family hx anesthesia problems: none Results Review: All pre-operative results and documents have been reviewed as part of the pre-operative evaluation. [facility] Past Medical History Medical History Abnormal fasting glucose Glucose 92 with hemoglobin A1c 5.6 on 04/21/2022. Fasting glucose 98 with hemoglobin A1c 5.4 on 05/12/2023. 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 Self catheterization 3 times daily and consideration InterStim BMI 23.0-23.9, adult BMI 24.0-24.9, adult BMI 25.0-25.9,adult BPH with urinary obstruction BPH without obstruction/lower urinary tract symptoms Cardiomyopathy Chronic low back pain with right-sided sciatica CT myelogram 10/21/2022 with diffuse spondylosis with severe bilateral neuroforaminal stenosis at T12-L1 and moderate to severe neuroforaminal bilateral stenosis at L4-L5 and L5-S1. MRI lumbar spine 10/15/2023 with fusion L1 through L4 with moderate to severe spondylosis. Severe neural foraminal narrowing bilaterally at L4-L5 and L5-S1. Contact dermatitis and eczema due to plant Encounter for prostate cancer screening PSA 0.38 on 05/12/2023. Essential (primary) hypertension Frontal mass of brain Meningioma Glaucoma Heart murmur on physical examination Echocardiogram 04/28/2019 with mild aortic and tricuspid valve regurgitation Hiccups (~11/25/21) Hypothyroidism, unspecified TSH 1.79 with free T4 1.9 on 04/21/2022. TSH 2.38 with free T4 at 1.3 on 05/12/2023. Itchy skin (~09/2023) Anterior neck bilaterally without rash resolved with prednisone Meningioma (~12/2019) 4.2 cm meningioma left frontal lobe unchanged on MRI of the brain 11/14/2022 with chronic small-vessel disease unchanged. Nocturia PSA 0.4 on 04/21/2022. Overactive bladder Polyp of colon Pulmonary asbestosis Urinary retention UTI (urinary tract infection) Surgical History Surgical History History of hernia surgery History of lumbar fusion Family History Family History Father Family history of alcoholism, Onset Age: 68 Mother Cerebrovascular accident, Onset Age: 88 Social History Social History (Updated 03/08/24 @ 10:30 by MARGARITA Price) Smoking status: Never smoker Second hand tobacco smoke exposure: No Alcohol intake: agustín
[2024-03-21] MEDS: ACETAMINOPHEN 500 MG TABLET 1000 MG PO (09:00)
--- NOTE | 2024-03-21 09:05 | WPDHPUPDATE1 ---
History and Physical Update Update Date/Time: 03/21/24 09:05 History and Physical has been reviewed, including an updated exam of the patient. There are NO changes in the patient's condition. Risks, benefits, and alternatives have been discussed and questions answered. Patient agrees to proceed with procedure. Reiterated the size of the tear and the possibility that the repair may not work.
[2024-03-21] MEDS: LACTATED RINGERS 1,000 ML 30 ML IV CONT ×2 (09:18→11:32)
[2024-03-21] MEDS: KETOROLAC 15 MG/ML VIAL (*BKC) IV PUSH (09:34)
--- NOTE | 2024-03-21 09:39 | WPDANESPNB ---
Anes - Peripheral Nerve Block Date/Time: 03/21/24 09:39 I have discussed with the patient/family/POA the placement of a peripheral nerve block for post-operative pain management, including associated risks, benefits, complications, and side effects. Alternative methods of post-operative analgesia were detailed. Questions were solicited and answers provided to the satisfaction of the patient/family/POA. Time-Out: A pre-procedural Time-Out was completed immediately before starting the procedure and confirmed: Patient Identification, Site, Procedure, Patient Position and the Availability of Requisite Equipment. Clinical Indications: Acute post-operative pain management requested by the operative surgeon. Nerve Block Insertion Note Anes-nerve block: interscalene left Patient position: supine Skin prep: chlorhexidine Needle: 22 gauge, stimulating, insulated echogenic needle. Needle length: 50 mm Technique: ultrasound Injectate: bupivacaine 0.5% with epi 5 mcg/ml (30cc- no epi) Observations: tolerated well Complications: none Procedure start time:: 933 Procedure end time:: 936
[2024-03-21] MEDS: ceFAZolin 2 GM/D5W 50 ML 2 GM/50 ML BAG IVPB (09:44)
[2024-03-21] MEDS: LIDO 1%/EPINEPHRINE 1:100,000 20 ML VIAL 10 ML INFILTRATE (10:18)
--- NOTE | 2024-03-21 10:49 | W.PM.PROC2 ---
Procedure Note - Detailed Date of Procedure 03/21/24 Pre-op Diagnosis Left Rot Cuff Tear A C Arthritis Post-op Diagnosis Same Procedure Performed Rotator cuff repair, distal clavicle excision Surgeon Sin Panchal MD [employer] Kevin Wiley Anesthesia General Description of Procedure Patient brought to the operative room #8. A general anesthetic was administered. The patient was placed in the beach chair position with the LEFT shoulder exposed.? After sterile prep and drape, standard posterior and lateral portals were used for arthroscopy. The joint itself showed moderate degenerative changes.? There was copmlete tearing of the rotator cuff area in the supraspinatus and infraspinatus region. This was gently debrided.? The subacromial space had an intense bursa, this was debrided with a shaver and acromioplasty performed arthroscopically.? The subacromial space was quite tight initially. I then proceeded to open the shoulder. A longitudinal incision made from the AC joint distalward over the shoulder.? Dissection carried down to the fascia. The fascia overlying the acromioclavicular joint was split. The AC joint found and a distal clavicle excision performed removing 2 to 3 millimeters of bone.? The edges beveled.? The deltoid was then split from the tip of the acromion. The remainder of the bursa was debrided.? The rotator cuff was completely torn in both the supraspinatus and infraspinatus regions. This was debrided and repaired to bone using #2 Ethibond suture.? A good repair was obtained. At this point the deltoid was repaired to itself,the acromion and the trapezius using #2 Ethibond. The skin was closed with 2-0 Vicryl and yobani.? Sterile dressing applied patient tolerated well left the operating room satisfactory condition. Estimated Blood Loss 50 Drains No Packing No Pathology None sent Complications No immediate complications Condition Stable Disposition PACU [facility] Billing Surgery - Charge Forward: Surgery Billing ([id number] RTC Repair [id number] DCE)
== END 2024-03-21 13:50 | disposition home or self-care (01) ==
PROVIDERS: PCP Family Medicine; Visit Provider Orthopaedic Surgery
PROC: (CPT 29805; principal; 2024-03-21 10:00)
DX: M75.122 Complete rotator cuff tear or rupture of left shoulder, not specified as traumatic (principal); M19.012 Primary osteoarthritis, left shoulder; G89.29 Other chronic pain; M54.50 Low back pain, unspecified; I10 Essential (primary) hypertension; G89.18 Other acute postprocedural pain; R01.1 Cardiac murmur, unspecified; E03.9 Hypothyroidism, unspecified; N32.81 Overactive bladder; R33.9 Retention of urine, unspecified; N40.1 Benign prostatic hyperplasia with lower urinary tract symptoms; N31.2 Flaccid neuropathic bladder, not elsewhere classified; Z98.890 Other specified postprocedural states; Z98.1 Arthrodesis status; Z86.0100 Personal history of colon polyps, unspecified; Z86.011 Personal history of benign neoplasm of the brain; Z82.49 Family history of ischemic heart disease and other diseases of the circulatory system
CPT/HCPCS: 64415; 23412; 23120; 93005; A9270; J0690; J1100; J1596; J1885; J2003; J2004; J2371; J2405; J2704; J7120

== ENCOUNTER 2024-06-13 14:15 | Outpatient (RCR) | payer MEDICARE, SELFPAY ==
--- NOTE | 2024-05-09 17:55 | OPREHPOC ---
Outpatient Therapy Plan of Care This is a Multidisciplinary Plan of Care that may contain components documented by all disciplines (PT, OT, and ST.) PT Problem 1 PT Problem #1 Knowledge Deficit PT Goal 1 Goal / Goal Update [place] with HEP Target Visit 4 PT Problem 2 PT Problem #2 Impaired Range of Motion PT Goal 1 Goal / Goal Update 1. Achieve 170 degrees of left shoulder flexion ROM 2. Achieve 80 degrees of left shoulder external rotation ROM Target Visit 10 PT Problem 3 PT Problem #3 Impaired Strength PT Goal 1 Goal / Goal Update 1. Improve L shoulder flexion strength to 4+/5 to improve object lifting ability 2. Improve L shoulder external rotation strength to 4+/5 to improve stability with ADL performance Target Visit 10 PT Problem 4 PT Problem #4 Impaired Functional Mobil PT Goal 1 Goal / Goal Update Demonstrate Disability index<20% on QuickDASH Target Visit 10
--- NOTE | 2024-05-09 17:55 | PTOPEVAL1 ---
Assessment and note entered by Tommie Stern, PT Evaluation Information Assessment Status Evaluation Diagnosis M75.102- Left shoulder rupture ICD-10 Condition Codes (PT) M25.511 Onset 03/21/24 Subjective Information Reports history of back surgery that at times inhibits his walking. Walks with walking sticks most of the time. Reports that while on vacation in [facility] he was walking and fell face first and landed on his shoulder. Reports that he is now having pain consistently in the shoulder underwent shoulder repair. He has been doing passive ROM in the shoulder with his at home. He is right handed. Not currently taking anything for pain. Reported Pain Level Pain Score 4: Self Report Assessment PT Clinical Summary Patient presents with signs and symptoms consistent with post operative rotator cuff repair . Patient is very guarded and sore with motion but was improved through passive guidance. Will benefit from skilled therapy to address deficit in strength and functional ROM as tolerated per protocol. Plan of Care Interventions Hot Pack/Cold Pack,Manual Therapy,Neuro Re- education,Therapeutic Activities,Therapeutic Exercise PT Services Indicated Yes Treatment Frequency and 2x/week for 10 visits Duration These treatments will address the objective and functional deficits as defined above. The patient will be advanced safely and appropriately in order for the patient to progress towards his/her prior level of function. Additional exercises will be introduced and as well as a comprehensive home exercise program upon discharge, if needed, ?to ensure carryover of functional gains achieved in the clinic. This treatment plan has been reviewed and agreement upon by the patient.
--- NOTE | 2024-06-13 14:59 | OPREHPOC ---
Outpatient Therapy Plan of Care This is a Multidisciplinary Plan of Care that may contain components documented by all disciplines (PT, OT, and ST.) PT Problem 1 PT Problem #1 Knowledge Deficit PT Goal 1 Goal / Goal Update [place] with HEP Target Visit 4 Progress Met PT Problem 2 PT Problem #2 Impaired Range of Motion PT Goal 1 Goal / Goal Update 1. Achieve 170 degrees of left shoulder flexion ROM 2. Achieve 80 degrees of left shoulder external rotation ROM Target Visit 10 Progress Met PT Problem 3 PT Problem #3 Impaired Strength PT Goal 1 Goal / Goal Update 1. Improve L shoulder flexion strength to 4+/5 to improve object lifting ability 2. Improve L shoulder external rotation strength to 4+/5 to improve stability with ADL performance Target Visit 10 Progress Partially Met PT Problem 4 PT Problem #4 Impaired Functional Mobility PT Goal 1 Goal / Goal Update Demonstrate Disability index<20% on QuickDASH Target Visit 10 Progress Met
--- NOTE | 2024-06-13 14:59 | PTOPDC ---
Assessment and note entered by Tommie Stern, PT Evaluation Information Assessment Status Discharge Diagnosis M75.102- Left shoulder rupture ICD-10 Condition Codes (PT) Pain in right shoulder M25.511 Onset 03/21/24 Subjective Information Leaving for [place] today. Reports that at this point in therapy he is comfortable with most of his exercises. He has been diligent with doing exercises but has days that his shoulder feels really tired. Still has pain if he puts too much pressure on his shoulder for too long. He is in the habit of sleeping on his left side. Reported Pain Level Pain Score 0: Self Report Assessment PT Clinical Summary Patient met all goals in line with progress expectations at this point. Progress is in line with protocol and patient will be leaving for [place] tomorrow and plans to continue HEP with progression to strengthening at this time in a pain free manner. Patient will contact MD should he have any questions. Plan of Care PT Services Indicated Yes
== END 2024-06-14 09:20 | disposition home or self-care (01) ==
LOC: ANHPT 14:15
PROVIDERS: PCP Family Medicine; Visit Provider Orthopaedic Surgery
DX: M75.102 Unspecified rotator cuff tear or rupture of left shoulder, not specified as traumatic (principal); Z98.890 Other specified postprocedural states
CPT/HCPCS: 97110; 97140; 97161; 97530

== ENCOUNTER 2024-11-02 14:04 | Observation (INO) | payer MEDICARE, SELFPAY ==
[2024-11-02] VITALS (15 sets, daily range): BP systolic 95–162; BP diastolic 45–80; PULSE 39–60; RESP 14–20; TEMP 36.6–36.9; O2SAT 94–100; BMI 21.2
--- NOTE | ~2024-11-02 | CT_ITS ---
CT brain wo con Ordering provider: Luis F Wright MD History: 84 years Male with . head injury . Comparison: January 11, 2020 Technique: CT of the head without contrast. Radiation reduction technique utilized. The dose-length p roduct was 605.33 mGy-cm. FINDINGS: BRAIN PARENCHYMA AND CSF SPACES: Left frontal mass is unchanged from previous examination suggestive of meningioma. Mild leukoaraiosis and diffuse cortical atrophy. Mild atheromatous disease. No midline shift, mass effect or hemorrhage. The brain parenchyma and CSF spaces are otherwise normal. VISUALIZED PARANASAL SINUSES: Well aerated. MASTOIDS: Well aerated. BONES: The bones appear intact. SOFT TISSUES: Visualized nasopharynx is normal. Superficial soft tissues are normal. IMPRESSION: No acute intracranial findings. Meningioma in the left frontal lobe unchanged from previous examination. Reviewed, dictated and finalized at location A.
--- NOTE | ~2024-11-02 | XR_ITS ---
CHEST RADIOGRAPH, PA AND LATERAL CLINICAL HISTORY: syncopal episode . COMPARISON: 01/24/2023 TECHNIQUE: PA and lateral views of the chest. FINDINGS The cardiomediastinal silhouette is enlarged, unchanged. Bibasilar atelectasis. The lungs are otherwise clear. IMPRESSION: Bibasilar atelectasis, without focal infiltrate or effusion. Reviewed, dictated and finalized at location A.
--- NOTE | 2024-11-02 14:09 | ECG_ITS ---
Test Date: 2024-11-02 14:13:06 Measurements Intervals [place] Rate: 37 P: 33 HI: 148 QRS: 14 QRSD: 110 T: 2 QT: 531 QTc: 419 Interpretive Statements MARKED SINUS BRADYCARDIA WITH A JUNCTIONAL ESCAPE BEAT ANTEROLATERAL MYOCARDIAL INFARCTION , OF INDETERMINATE AGE [40+ ms Q WAVE IN I/aVL/V3-V6] ABNORMAL ECG Compared to ECG 03/16/2024 10:35:07 No significant changes Electronically Signed On 11-02-2024 15:16:00 CDT by Todd Whitlock M.D.
--- OUTSIDE RECORDS SUMMARY | 2024-11-02 14:16 | XMS_ITS | Continuity of Care Document ---
Author Organization [facility] Address [address] [place] [address] [address] [place] [address] Phone Care Team Providers Care Gsa Coordinator Name Role Phone Luis Nunn Unavailable Unavailable Procedures Procedure Date Post-op Follow-up Visit Post-op Follow-up Visit Post-op Follow-up Visit Remove Cataract, Insert Lens,Comanaged J PreOp Assessment Performed No Charge Cataract Check No Charge Cataract Check Office/outpatient Visit, [facility] Advance Directives Directive Yes / No Effective Date File Name No Information Encounters Encounter Description Practice Location Reason(s) For Visit Diagnoses Date Provider Providers Copied on Encounter [facility], [address] [place] [address] [address], [place], [place], [id number], [place] tel:[phone] [facility] No Information 0 Edouard Smith. [address] , [address], [place], [place], [facility], [place]. tel:[phone] [facility], [address], [place], [place], [address], [place] tel:[phone] [facility] No Information 0 Edouard Edluis. [address] , [address], [place], [address], [place]. tel:[phone] Referring Provider: Sharif Mi, [address] [place] [address], [facility]. tel:[phone] [facility] Eye [facility], [address], [place], [place], [address], [place] tel:[phone] [facility] No Information 2 8-201 0 Doisy Edluis. [address] , [address], [place], [facility], [place]. tel:[phone] [facility], [address], [place], [place], [id number], [place] tel:[phone] [facility] No Information 2 7-201 0 Edouard Edluis. [facility] [facility] [facility] , [address], [place], [facility], [place]. tel:[phone] Referring Provider: Sharif Mi, [address] [place] [address], [facility]. tel:[phone] [facility], [address], [place], [place], [address], [place] tel:[phone] [facility] No Information 2 0-201 0 Edouard Smith. [address] [place], [place] [address]ate Tina [address], [address], [place], [facility], [place]. tel:[phone] Referring Provider: Sharif Mi, [address] [place] [address], [facility]. tel:[phone] [facility], [address], [place], [place], [id number], [place] tel:[phone] [facility] No Information 0 6-201 0 Doienoch Edluis. [facility] [address], [address], [place], [facility], [place]. tel:[phone] Referring Provider: Luis Mi, [facility] [address], [place], [facility]. tel:[phone] Office/outpat ient Visit, [facility] Eye [facility], [address], [place], [place], [id number], [place] tel:[phone] [facility] No Information 0 Edouard Smith. [address], [place], [address], [place]. tel:[phone] Referring Provider: Sharif Mi, [address] [facility], [place], [facility]. tel:[phone] Family History Family Member Type Diagnosis Age At Onset No Information Payers Payer name Insurance type Covered republican ID Authoriza tion(s) No Information Social History Type Description Quantity Date Captured Comments Sex Male Smoking Status No Information Chief Complaint And Reason For Visit No Information Reason For Referral Reason For Referral No Information History Of Present Illness Encounter Date Complaint History Of Prese nt Illness No Information Functional Status Date Functional Assessmen t No Information Instructions Date Instruction Additional Infor mation No Information Assessments Type Assessment Date No Information Patient Care Teams Name Effective Dates (start - stop) Status Members No Information
--- OUTSIDE RECORDS SUMMARY | 2024-11-02 14:16 | XMS_ITS | Clinical Summary ---
Author Organization [facility] [address] Address [address] [place] [address] Care Team Providers Care Digital Forensic Examiner Name Role Phone Jonah Glynn MD Primary Care Provider [phone] Allergies No known active allergies Medications levothyroxine (SYNTHROID) 100 mcg tablet Take 1 tablet by mouth daily 7 Active metoprolol XL (TOPROL-XL) 25 mg 24 hr tablet Take 25 mg by mouth daily Active naproxen (ANAPROX DS) 550 mg tablet Take by mouth 2 (two) times a day with meals Active latanoprost (XALATAN) 0.005 % ophthalmic solution 1 drop nightly Activ e TIMOLOL MALEATE OPHT Administer 1 drop into affected eye(s) Active Active Problems Problem Noted Date Diagnosed Date Enthesopathy of hip region 06/04/2020 Lateral epicondylitis 06/04/2020 Osteoarthritis 06/04/2020 Meningioma 06/01/2020 Spinal stenosis 11/24/2012 Lumbar radiculopathy 09/09/2012 Assessment & Plan (06/25/2022 1:44 PM 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 Clark has numbness and weakness in his right leg with history of bladder incontinence. We will get any EMG/nerve conduction study of the bilateral lower extremities to evaluate for radiculopathy versus plexopathy. We will speak to him by phone about the results. I plan to see him back in mid August for re-evaluation with AP and lateral thoracic spine films as well as flexion-extension lumbar spine films. If the EMG/nerve conduction study is unrevealing, he may ultimately benefit from imaging of the upper spine. Immunizations Immunization Administration Dates Next Due Influenza, Quad, Adjuvantate d, Intramuscular 03/22/2020 Influenza, Quadrivalent, Spl it, Preservative Free, Intramuscular 03/22/2020 Influenza, Trivalent, Adjuva nted, Intramuscular 2019,03/27/2018 Influenza, Trivalent, High D ose, Split, Preservative Free, Intramuscular 04/03/2017,03/07/2016,04/05/2015,02/09 Influenza, Trivalent, IM (MDV) 04/10/2012 Pneumococcal Conjugate PCV 13 04/17/2016 Pneumococcal Polysaccharide PPV23 04/18/2017 ZOSTER LIVE 05/10/2012 ZOSTER Recombinant 06/09/2018,01/01/2018 Surgical History Surgery Date Site/Laterality Comments HERNIA REPAIR POSTERIOR FUSION LUMBAR SPINE 10/13/2014 L1-4 PSF (Steve) Medical History Medical History Date Comments Thyroid disease Glaucoma Heart murmur Family History Medical History Relation Name Comments Stroke Mother Relation Name Status Comments Mother Social History Tobacco Use Types Packs/Day Years Used Date Smoking Tobacco: Never Tobacco Cessation:Counseling Given: Not Answered Alcohol Use Standard Drinks/Week Comments Not Currently 0 (1 standard drink = 0.6 oz pur e alcohol) AUDIT-C Answer Date Recorded Frequency of Alcohol Consumption Never 06/04/2020 Average Number of Drinks Not on file 020 Frequency of Binge Drinking Not on file 05/16 PHQ-2 Answer Date Recorded PHQ-2 Total Score (If total score is 3 or more points, staff should administer the PHQ-9) 0 06/03/2022 Personal Safety Answer Date Recorded Getting School Help Needed Not on file 11/13 Sex and Gender Information Value Date Recorded Sex Assigned at Not on file Legal Sex Male 5:48 PM INJECTION MOLDING ENGINEER Gender Identity Not on file Sexual Orientation Not on file Obstetrics History Last Filed Vital Signs Vital Sign Reading Time Taken Comments Blood Pressure 161/70 10/15/2022 12:25 PM CDT Pulse 40 10/15/2022 12:25 PM CDT Temperature 36.2 C (97.2 F) 10/15/2022 10:38 AM CDT Respiratory Rate 18 10/15/2022 12:25 PM CDT Oxygen Saturation 95% 01/10/2013 11:37 AM CDT Inhaled Oxygen Concentration - - Weight 71.8 kg (158 lb 4.6 oz) 10/15/2022 10:38 AM CDT Height 172.7 cm (5' 8 ) 10/15/2022 10:38 AM CDT Body Mass Index 24.07 10/15/2022 10:38 AM CDT Plan of Treatment Health Maintenance Due Date Last Done Comments DTaP/Tdap/Td Vaccine (1 - Tdap) 1951 Hepatitis B Screening 1958 Well Visit 65+ 2005 Depression Screening 06/03/2023 06/03/2022 Fall Risk Assessment 10/16/2023 10/15/2022 Influenza Vaccine (Season Ended) 2025 03/22/2020, 03/22/2020, 2019, Additional history exists Pneumococcal vaccine 65+ Completed 04/18/2017, 08/2015 Zoster Vaccine Completed 06/09/2018, 12/14, 05/10/2012 Insurance [facility] Address: [address] [address] [facility]IC[facility] Address: [address] [address] [place] [address] [facility] MEDIC[facility] Address: [address] [address] [place] [address] Care Teams Digital Forensic Examiner Relationship Specialty Start Date End Date Jonah Glynn MD [address] [address] PCP - General Family Medicine 05/05/19
--- OUTSIDE RECORDS SUMMARY | 2024-11-02 14:16 | XMS_ITS | Referral Summary ---
Author Organization [facility] [address] Address [address] [place] [address] Care Team Providers Care Developmental Training Counselor Name Role Phone Jonah Glynn MD Primary Care Provider [phone] Allergies No known active allergies Medications levothyroxine [...] 09/09/2012 Assessment & Plan (06/25/2022 1:44 PM DIRECTOR OF SPORTS PERFORMANCE): Mr. Clark has numbness and weakness in [...] 04/18/2017 ZOSTER LIVE 05/10/2012 ZOSTER Recombinant 06/09/2018,01/01/2018 Social History Tobacco Use Types Packs/Day Years [...] on file Legal Sex Male 5:48 PM DIRECTOR OF SPORTS PERFORMANCE Gender Identity Not on file Sexual Orientation Not on file Last Filed Vital Signs Vital Sign Reading [...] 10/15/2022 10:38 AM CDT Plan of Treatment Not on file Insurance UHC MEDICARE ADVANTAGE Member Subscriber Plan / Payer (Ef fective 2021-Present) Name:Wisam Clark Relation to Subscriber:Self Name:Wisam Clark Payer ID:[id number] (NAIC) Type:[facility] Address: [place] [phone] UHC MEDICARE ADVANTAGE UHC MEDICARE ADVANTAGE Care Teams Developmental Training Counselor Relationship Specialty Start Date End Date Jonah Glynn MD [address] [address] PCP - General Family Medicine 05/05/19
--- OUTSIDE RECORDS SUMMARY | 2024-11-02 14:16 | XMS_ITS | Clinical Summary ---
Author Organization [facility] Address [address] [facility] [address] [place] [address] Phone Care Team Providers Care Sampler And Test Preparer Name Role Phone Jonah Glynn MD Primary Care Provider Allergies No known active allergies Medications polyethylene glycol (MIRALAX) Powder Use entire 255g bottle with 64oz of clear liquid as directed for colonoscopy prep. 255 g 0 6 Active tamsulosin (FLOMAX) 0.4 MG Capsule Take 1 Cap by mouth daily. 3 7 Active levothyroxine (SYNTHROID) 75 MCG Tablet Take 1 Tab by mouth daily. 3 7 Active oxybutynin (DITROPAN) 5 MG Tablet Take 1 Tab by mouth daily. 6 7 Active Social History Tobacco Use Types Packs/Day Years Used Date Smoking Tobacco: Never Smokeless Tobacco: Never Alcohol Use Standard Drinks/Week Comments No 0 (1 standard drink = 0.6 oz pur e alcohol) Sex and Gender Information Value Date Recorded Sex Assigned at Not on file Legal Sex Male 12:00 AM CDT Gender Identity Not on file Sexual Orientation Not on file Plan of Treatment Health Maintenance Due Date Last Done Comments Hepatitis C Virus (HCV) Screening 1940 TdaP Immunization 1940 Pneumococcal Immunization (5 0+ years) (1 of 1 - PCV) 1990 Zoster Immunization (1 of 2) 1990 Respiratory Syncytial Virus (RSV) Immunization (Adult) (1 - 1-dose 75+ series) 2015 Influenza Immunization (#1) 2024 SARS-COV-2 Immunization (2023-25 season) 2024 Hepatitis B Immunization Aged Out No longer eligible based on patient's age to complete this topic Meningococcal Immunization (ACWY) Aged Out No longer eligible based on patient's age to complete this topic Rotavirus Immunization Aged Out No lo nger eligible based on patient's age to complete this topic Insurance MEDICARE Care Teams Sampler And Test Preparer Relationship Specialty Start Date End Date Jonah Glynn MD [address] [address] PCP - General Family Medicine 05/05/16
--- OUTSIDE RECORDS SUMMARY | 2024-11-02 14:39 | XMS_ITS | Referral Summary ---
Author Organization [facility] [address] Address [address] [place] [address] Care Team Providers Care Plant Protection Guard Name Role Phone Jonah Glynn MD Primary Care Provider [phone] Allergies No known active allergies Medications levothyroxine [...] 09/09/2012 Assessment & Plan (06/25/2022 1:44 PM EQUIPMENT ENGINEERING TECHNICIAN): Mr. Clark has numbness and weakness in [...] on file Legal Sex Male 5:48 PM EQUIPMENT ENGINEERING TECHNICIAN Gender Identity Not on file Sexual Orientation [...] Not on file Insurance [employer] MEDICARE ADVANTAGE [facility] Address: [place] [id number] UHC MEDICARE ADVANTAGE [facility] Address: [place] [address] [facility]HC MEDICARE ADVANTAGE [facility] Address: [facility] [address] [place] [address] Care Teams Plant Protection Guard Relationship Specialty Start Date End Date Jonah Glynn MD [address] [address] PCP - General Family Medicine 05/05/19
--- OUTSIDE RECORDS SUMMARY | 2024-11-02 14:39 | XMS_ITS | Continuity of Care Document ---
Author Organization [facility] Address [address] [place] [address] [address] [place] [address] Phone Care Team Providers Care Supervisor Telephone Answering Service Name Role Phone Luis Nunn Unavailable Unavailable Procedures Procedure Date Post-op Follow-up Visit Post-op Follow-up Visit Post-op Follow-up Visit Remove Cataract, Insert Lens,Comanaged J PreOp Assessment Performed No Charge Cataract Check No Charge Cataract Check Office/outpatient Visit, [facility] Advance Directives Directive Yes / No Effective Date File Name No Information Encounters Encounter Description Practice Location Reason(s) For Visit Diagnoses Date Provider Providers Copied on Encounter [facility], [address] [place] [address] [address], [place], [place], [id number], [place] tel:[phone] SEC [facility] No Information 0 Edouard Smith. [address] [facility] [address] , [address], [place], [place], [facility], [place]. tel:[phone] [facility], [address], [place], [place], [address], [place] tel:[phone] SEC [facility] No Information 0 Edouard Edluis. [address] , [address], [place], [address], [place]. tel:[phone] Referring Provider: Sharif Mi, [address] [place] [address], [facility]. tel:[phone] [facility], [address], [place], [place], [address], [place] tel:[phone] [facility] No Information 2 8-201 0 Doisy Edluis. [address] [facility] [address] , [address], [place], [facility], [place]. tel:[phone] [facility], [address], [place], [place], [address], [place] tel:[phone] [facility] No Information 2 7-201 0 Edouard Edluis. [facility] , [address], [place], [place], [facility], [place]. tel:[phone] Referring Provider: Sharif Mi, [address] [place] [address], [facility]. tel:[phone] [facility], [address], [place], [place], [address], [place] tel:[phone] [facility] No Information 2 0-201 0 Edouard Smith. [address] [place], [place] [address]ate Tina Bhatia, [address], [place], [facility], [place]. tel:[phone] Referring Provider: Sharif Mi, [address] [place] [address], [facility]. tel:[phone] [facility], [address], [place], [place], [address], [place] tel:[phone] [facility] No Information 0 6-201 0 Doienoch Edluis. [facility] [address], [address], [place], [facility], [place]. tel:[phone] Referring Provider: Luis Mi, [facility] [address], [place], [facility]. tel:[phone] Office/outpat ient Visit, [facility] Eye [facility], [address], [place], [place], [address], [place] tel:[phone] [facility] No Information 0 Edouard Smith. [address], [place], [address], [place]. tel:[phone] Referring Provider: Sharif Mi, [address] [facility], [place], [facility]. tel:[phone] Family History Family Member Type Diagnosis Age [...]
--- OUTSIDE RECORDS SUMMARY | 2024-11-02 14:39 | XMS_ITS | Clinical Summary ---
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 Clark has numbness and weakness in [...] on file Legal Sex Male 5:48 PM FILM DEVELOPING MACHINE OPERATOR Gender Identity Not on file Sexual Orientation [...] Zoster Vaccine Completed 06/09/2018, 12/14, 05/10/2012 Insurance [facility] MEDIC[facility] ADVANTAGE [facility] Address: [address] [address] [facility]IC[facility] Address: [address] [address] [place] [address] [facility] MED[facility] Address: [address] [address] [place] [address] Care Teams Loss Prevention And Safety Manager Relationship Specialty Start Date End Date Jonah Glynn MD [address] [address] PCP - General Family Medicine 05/05/19
--- OUTSIDE RECORDS SUMMARY | 2024-11-02 14:39 | XMS_ITS | Clinical Summary ---
Author Organization [facility] Address [address] [facility] [address] [place] [address] Phone Care Team Providers Care Trimmer Hand Name Role Phone Jonah Glynn MD Primary [...] complete this topic Insurance MEDICARE Care Teams Trimmer Hand Relationship Specialty Start Date End Date Jonah Glynn MD [address] [address] PCP - General Family Medicine 05/05/16
[2024-11-02 14:42] LABS: Basophils Absolute Auto 0.1 K/mm3 (0.0-0.1); Basophils Percent Auto 0.9 % (0.2-1.2); Eosinophils Absolute Auto 0.2 K/mm3 (0-0.3); Eosinophils Percent Auto 3.7 % (0-4.4); Hemoglobin 13.1 g/dL (14.0-18.0); Immature Granulocyte Absolute 0.01 K/mm3 (0.00-0.031); Immature Granulocyte Percent A 0.2 % (0-0.5); Lymphocytes Absolute Auto 1.77 K/mm3 (0.9-3.2); Mean Corpuscular Hemoglobin 32.3 pg (26-34); Mean Platelet Volume 10.5 fl (7.4-10.4); Monocytes Absolute Auto 0.5 K/mm3 (0.1-0.6); Monocytes Percent Auto 10.1 % (2.6-8.5); Neutrophils Absolute Auto 2.8 K/mm3 (1.3-6.7); Neutrophils Percent Auto 52.1 % (45.5-73.1); Platelet Count Result 202 k/mm3 (150-375); Red Blood Count 4.06 M/mm3 (4.6-6.20); White Blood Count 5.4 K/mm3 (4.5-10.0)
[2024-11-02 14:53] LABS: Alanine Aminotransferase 28 U/L (6-50); Albumin Level 4.2 g/dL (3.5-5.1); Alkaline Phosphatase 71 U/L (38-126); Anion Gap 7 mmol/L (4-12); Aspartate Amino Transferase 40 U/L (17-59); Bilirubin,Total 0.9 mg/dL (0.2-1.3); Blood Urea Nitrogen 14 mg/dL (9-20); Calcium 8.8 mg/dL (8.4-10.2); Carbon Dioxide 29 mmol/L (22-30); Chloride 98 mmol/L (98-107); Estimated CRCL calculation 74 ml/min; Estimated Glomerular Filt Rate > 60; Glucose 79 mg/dL (65-110); Potassium 4.6 mmol/L (3.4-5.0); Sodium 134 mmol/L (137-145)
[2024-11-02 15:30] LABS: NT Pro B Type Natriuretic Pept 341 pg/mL (19.9-100); Troponin I < 0.012 ng/mL (0.000-0.034)
[2024-11-02] MEDS: SODIUM CHLORIDE 0.9% IV 1,000 ML 999 ML IV CONT (16:10)
--- NOTE | 2024-11-02 16:28 | ED.SYNCOPE ---
HPI - Syncope General Chief Complaint: Syncope Stated Complaint: SYNCOPAL EVENT, HEAD INJURY Time Seen by Provider: 11/02/24 14:16 History of Present Illness HPI narrative: Patient is an 84-year-old male who presents ER after having a syncopal event at home. Reports he has been getting dizzy when going from sitting to standing over last month. He got up out of his recliner and got lightheaded again and then lost consciousness hitting the ground. No chest pain or shortness of breath. No spinning. No numbness or weakness in arm or leg. He is not on any blood thinning medications. Small abrasion posterior scalp. Reports that he was going to take his blood pressure just prior to symptoms occurring. He reports that he has a chronically low heart rate related to running. Chart review shows he has been on metoprolol 25 mg and the last fill was in August. Related Data Home Medications ?Medication ?Instructions ?Recorded ?Confirmed ?Last Taken ?Type brimonidine 0.2 %-timolol 0.5 % 1 drp ophthalmic (eye) DIRECTED 04/27/22 09/13/24 Unknown History eye drops latanoprost 0.005 % eye drops 1 drp ophthalmic (eye) DIRECTED 04/27/22 09/13/24 03/21/24 History vit A 7,160 unit-vit C 113 mg-vit 1 tablet PO DAILY 05/15/22 09/13/24 Unknown History E 100 rwdm-nxpi-hmdjca tablet finasteride 5 mg tablet 5 mg PO DAILY 05/24/23 09/13/24 Unknown History cranberry 500 mg capsule 500 mg PO DAILY 03/15/24 09/13/24 Unknown History Allergies Allergy/AdvReac Type Severity Reaction Status Date / Time No Known Allergies Allergy Verified 11/02/24 14:35 Review of Systems Review of Systems: All systems reviewed & are unremarkable except as noted in HPI and below Constitutional: Constitutional: Reports no additional constitutional complaints ENT: Reports system reviewed and no additional complaints, except as documented Cardiovascular: Cardiovascular: Reports no additional cardiovascular complaints Respiratory: Respiratory: Reports no additional respiratory complaints Gastrointestinal: Gastrointestinal: Reports no additional gastrointestinal complaints Genitourinary: Genitourinary: Reports no additional male genitourinary complaints Neurologic: Reports system reviewed and no additional complaints, except as documented [facility] Past Medical History Medical History Dizziness Anemia (~05/11/24) hemoglobin 13.1 with MCV 102 on 05/11/2024. Itchy skin (~09/2023) Anterior neck bilaterally without rash resolved with prednisone BPH with urinary obstruction Acute non-recurrent maxillary sinusitis Encounter for prostate cancer screening PSA 0.38 on 05/12/2023. 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 Self catheterization 3 times daily and consideration InterStim Hiccups (~11/25/21) BMI 24.0-24.9, adult Pulmonary asbestosis Glaucoma Urinary retention UTI (urinary tract infection) BMI 25.0-25.9,adult Contact dermatitis and eczema due to plant Essential (primary) hypertension Meningioma (~12/2019) 4.2 cm meningioma left frontal lobe unchanged on MRI of the brain 11/14/2022 with chronic small-vessel disease unchanged. Overactive bladder Frontal mass of brain Meningioma Cardiomyopathy Heart murmur on physical examination Echocardiogram 04/28/2019 with mild aortic and tricuspid valve regurgitation Polyp of colon Hypothyroidism, unspecified TSH 1.79 with free T4 1.9 on 04/21/2022. TSH 2.38 with free T4 at 1.3 on 05/12/2023. TSH 1.80 on 05/11/2024. Abnormal fasting glucose Glucose 92 with hemoglobin A1c 5.6 on 04/21/2022. Fasting glucose 98 with hemoglobin A1c 5.4 on 05/12/2023. Glucose 110 with hemoglobin A1c 5.8 and GFR 95 on 05/11/2024. Chronic low back pain with right-sided sciatica CT myelogram 10/21/2022 with diffuse spondylosis with severe bilateral neuroforaminal stenosis at T12-L1 and moderate to severe neuroforaminal bilateral stenosis at L4-L5 and L5-S1. MRI lumbar spine 10/15/2023 with fusion L1 through L4 with moderate to severe spondylosis. Severe neural foraminal narrowing bilaterally at L4-L5 and L5-S1. BPH without obstruction/lower urinary tract symptoms Nocturia PSA 0.4 on 04/21/2022. Surgical History Surgical History H/O repair of left rotator cuff 03/21/2024 History of hernia surgery History of lumbar fusion Family History Family History Father Family history of alcoholism, Onset Age: 68 Mother Cerebrovascular accident, Onset Age: 88 Social History Social History Smoking status: Never smoker Second hand tobacco smoke exposure: No Alcohol intake: current Alcohol use details: STATES MAYBE 1-2 BEERS A MONTH Substance use: never Substance use type: does not use Do You Feel Safe in your Home?: Yes Lack of Transportation: No Lack of Food: Never True Current Housing: I Have Housing Concerned About Future Housing: No Difficulty Paying Gas/Electric Bills: No Difficulty Paying for Meds: No Currently Unemployed: No Education: High School Diploma/GED Difficulty w/ Childcare or Family Care: No Living arrangements: with family Occupation/Education: retired Additional occupation/education comments: [employer] Gender identity (if verbalized by the patient): Male Spiritual care concerns: No Exam Narrative: GENERAL: Well-appearing, well-nourished, and in no acute distress. HEAD: Normocephalic, atraumatic. ENT: Mucous membranes moist. NECK: Supple. CHEST: Clear to auscultation. No respiratory distress. HEART: Bradycardic with audible murmur Normal peripheral pulses. ABDOMEN: Soft, nontender, nondistended. EXTREMITIES: Normal range of motion. No edema. SKIN: Warm, dry, no rash. NEURO: Alert and oriented x3. PSYCH: Normal mood and affect. Course Course Emergency Course: Admit for observation. Cardiology consulted. Will let beta-kenny washout. Patient was significant orthostasis but no syncope. Symptoms likely magnified by finasteride. Will obtain echo as well. Vital Signs Vital signs: Vital Signs Temperature 97.8 F 11/02/24 14:31 Pulse Rate 42 L 11/02/24 14:31 Respiratory Rate 15 11/02/24 14:31 Blood Pressure 127/62 11/02/24 14:31 Pulse Oximetry 100 11/02/24 14:31 Oxygen Delivery Room Air 11/02/24 14:31 Temperature 97.8 F 11/02/24 14:31 Pulse Rate 45 L 11/02/24 18:29 Respiratory Rate 14 11/02/24 18:29 Blood Pressure 141/59 H 11/02/24 18:29 Pulse Oximetry 99 11/02/24 18:29 Oxygen Delivery Room Air 11/02/24 14:31 MDM - Syncope Lab Data 11/02/24 14:37 11/02/24 14:37 Labs: Lab Results 11/02/24 11/02/24 Range/Units 14:37 18:06 WBC 5.4 (4.5-10.0) K/mm3 RBC 4.06 L (4.6-6.20) M/mm3 Hgb 13.1 L (14.0-18.0) g/dL Hct 41.0 L (42.0-52.0) % MCV 101.0 H (80-100) fl MCH 32.3 (26-34) pg MCHC 32.0 (32-36) g/dl RDW 14.0 (11.5-14.5) % Plt Count 202 (150-375) k/mm3 MPV 10.5 H (7.4-10.4) fl Immature Gran % (Auto) 0.2 (0-0.5) % Neut % (Auto) 52.1 (45.5-73.1) % Lymph % (Auto) 33.0 (18.3-44.2) % [place] % (Auto) 10.1 H (2.6-8.5) % Eos % (Auto) 3.7 (0-4.4) % Baso % (Auto) 0.9 (0.2-1.2) % Lymph # (Auto) 1.77 (0.9-3.2) K/mm3 [place] # (Auto) 0.5 (0.1-0.6) K/mm3 Eos # (Auto) 0.2 (0-0.3) K/mm3 Baso # (Auto) 0.1 (0.0-0.1) K/mm3 Abs Immat Gran (auto) 0.01 (0.00-0.031) K/mm3 Absolute Neuts (auto) 2.8 (1.3-6.7) K/mm3 Absolute Nucleated RBC 0.000 (0.0-0.012) K/mm3 Nucleated RBC % 0.0 (0.0-0.2) % Sodium 134 L (137-145) mmol/L Potassium 4.6 (3.4-5.0) mmol/L Chloride 98 (98-107) mmol/L Carbon Dioxide 29 (22-30) mmol/L Anion Gap 7 (4-12) mmol/L BUN 14 (9-20) mg/dL Creatinine 0.61 L (0.7-1.3) mg/dL Estim Creat Clear Calc 74 ml/min Estimated GFR > 60 (59 - ) Glucose 79 (65-110) mg/dL Calcium 8.8 (8.4-10.2) mg/dL Total Bilirubin 0.9 (0.2-1.3) mg/dL AST 40 (17-59) U/L ALT 28 (6-50) U/L Alkaline Phosphatase 71 (38-126) U/L Troponin I < 0.012 < 0.012 (0.000-0.034) ng/mL NT-Pro-B Natriuret Pep 341 H (19.9-100) pg/mL Total Protein 7.0 (6.3-8.2) g/dL Albumin 4.2 (3.5-5.1) g/dL Imaging Data Radiologist's impression: ITS Impressions Chest X-Ray 11/02/24 15:20 IMPRESSION: Bibasilar atelectasis, without focal infiltrate or effusion. Head CT 11/02/24 15:23 IMPRESSION: No acute intracranial findings. Meningioma in the left frontal lobe unchanged from previous examination. ECG Data EKG #1: ECG completion date: 11/02/24 ECG completion time: 18:06 EKG Interpretation: bradycardia (42), sinus rhythm, non-specific ST changes, prolonged QT and NL axis Discharge Plan Discharge Clinical Impression: Bradycardia, Syncope, Orthostasis Patient Disposition: Still a Patient Condition: Stable Patient Language: Nicaraguan Prescriptions: No Action latanoprost 0.005 % drops 1 drp ophthalmic (eye) DIRECTED brimonidine-timolol 0.2-0.5 % drops 1 drp ophthalmic (eye) DIRECTED (DME) jameel sotelo Misc See Rx Instructions .Route Qty: 1 0RF Rx Instructions: As directed vit A-vit C-vit G-xynn-bbdjoc 7,160-113-100 ijdk-we-nuoc tablet 1 tablet PO DAILY cranberry 500 mg Capsule 500 mg PO DAILY Rx Instructions: administer with meals finasteride 5 mg tablet 5 mg PO DAILY levothyroxine 100 mcg tablet 100 mcg PO QAM Qty: 90 3RF duloxetine 60 mg capsule,delayed release(DR/EC) 60 mg PO DAILY Qty: 90 3RF tamsulosin 0.4 mg capsule 0.4 mg PO HS Qty: 90 3RF metoprolol succinate 25 mg tablet extended release 24 hr 25 mg PO QAM Qty: 90 3RF Follow-up/Referrals: Jonah Glynn MD [Primary Care Provider] -
--- NOTE | 2024-11-02 17:56 | ECG_ITS ---
Test Date: 2024-11-02 18:06:31 Measurements Intervals [place] Rate: 42 P: 43 MN: 168 QRS: 37 QRSD: 114 T: 45 QT: 551 QTc: 462 Interpretive Statements SINUS BRADYCARDIA PROBABLE ANTEROLATERAL MYOCARDIAL INFARCTION , OF INDETERMINATE AGE [35 ms Q WAVE IN I/aVL/V3-V6] Compared to ECG 11/02/2024 14:13:06 NO SIGNIFICANT CHANGE Electronically Signed On 11-03-2024 13:56:19 CDT by Diallo Rowell M.D.
[2024-11-02 18:33] LABS: Troponin I < 0.012 ng/mL (0.000-0.034)
--- NOTE | 2024-11-02 18:54 | PM.IMHP ---
H&P: [facility] History of Present Illness Date/Time: 11/02/24 18:54 Chief Complaint: Syncope Narrative: 84 y/o M with PMH of anemia, BPH, glaucoma, hypertension, meningioma, overactive bladder, cardiomyopathy, and hypothyroidism presents here with syncope. The patient presents here from home on 11/02 for further evaluation after a syncopal episode. The patient reports he has been feeling dizzy with positional changes (sitting to standing) over the past month. Today he was getting out of his recliner when he became lightheaded. He then had a loss of consciousness and fall to the ground. He reports a positive head strike. He believes he was only briefly unconscious. He denies accompanying chest pain, shortness of breath, dizziness, focal weakness or focal numbness, palpitations, nausea, vomiting, diarrhea, fever or chills. He is not currently on anticoagulation. He reports a history of mild bradycardia secondary to running and has continued to exercise. He is currently on metoprolol ER 25 mg daily for HTN as well as finasteride 5 mg daily BPH/OAB. He has no previous history of syncope. Initial VS at presentation: 97.8? F, HR 42, RR 15, 127/62, and 100% on RA. ED workup showed: No leukocytosis, hemoglobin at baseline, sodium 134, creatinine 0.61 and GFR >60, glucose 79, no significant electrolyte derangements, BNP 341 (normal when adjusted for age). CXR showed bibasilar atelectasis without focal infiltrate or effusion. Head CT showed no acute intracranial findings and a meningioma in the left frontal lobe unchanged from previous examination. Initial EKG showed marked sinus bradycardia with a junctional escape beat, anterolateral VA, rate 37. Review of Systems Review of Systems: All systems reviewed & are unremarkable except as noted in HPI and below [facility] Past Medical History Medical History Dizziness Anemia (~05/11/24) hemoglobin 13.1 with MCV 102 on 05/11/2024. Itchy skin (~09/2023) Anterior neck bilaterally without rash resolved with prednisone BPH with urinary obstruction Acute non-recurrent maxillary sinusitis Encounter for prostate cancer screening PSA 0.38 on 05/12/2023. 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 Self catheterization 3 times daily and consideration InterStim Hiccups (~11/25/21) BMI 24.0-24.9, adult Pulmonary asbestosis Glaucoma Urinary retention UTI (urinary tract infection) BMI 25.0-25.9,adult Contact dermatitis and eczema due to plant Essential (primary) hypertension Meningioma (~12/2019) 4.2 cm meningioma left frontal lobe unchanged on MRI of the brain 11/14/2022 with chronic small-vessel disease unchanged. Overactive bladder Frontal mass of brain Meningioma Cardiomyopathy Heart murmur on physical examination Echocardiogram 04/28/2019 with mild aortic and tricuspid valve regurgitation Polyp of colon Hypothyroidism, unspecified TSH 1.79 with free T4 1.9 on 04/21/2022. TSH 2.38 with free T4 at 1.3 on 05/12/2023. TSH 1.80 on 05/11/2024. Abnormal fasting glucose Glucose 92 with hemoglobin A1c 5.6 on 04/21/2022. Fasting glucose 98 with hemoglobin A1c 5.4 on 05/12/2023. Glucose 110 with hemoglobin A1c 5.8 and GFR 95 on 05/11/2024. Chronic low back pain with right-sided sciatica CT myelogram 10/21/2022 with diffuse spondylosis with severe bilateral neuroforaminal stenosis at T12-L1 and moderate to severe neuroforaminal bilateral stenosis at L4-L5 and L5-S1. MRI lumbar spine 10/15/2023 with fusion L1 through L4 with moderate to severe spondylosis. Severe neural foraminal narrowing bilaterally at L4-L5 and L5-S1. BPH without obstruction/lower urinary tract symptoms Nocturia PSA 0.4 on 04/21/2022. Surgical History Surgical History H/O repair of left rotator cuff 03/21/2024 History of hernia surgery History of lumbar fusion Family History Family History (Updated 11/02/24 @ 20:48 by Gerri Uriostegui RN) Father Family history of alcoholism, Onset Age: 68 Mother Cerebrovascular accident, Onset Age: 88 Myocardial infarction Abdominal aortic aneurysm (AAA) Sepsis Social History Social History Smoking status: Never smoker Second hand tobacco smoke exposure: No Alcohol intake: never Alcohol use details: STATES MAYBE 1-2 BEERS A MONTH Substance use: never Substance use type: does not use Do You Feel Safe in your Home?: Yes Lack of Transportation: YES Lack of Food: Never True Current Housing: I Have Housing Concerned About Future Housing: No Difficulty Paying Gas/Electric Bills: No Difficulty Paying for Meds: No Currently Unemployed: No Education: High School Diploma/GED Difficulty w/ Childcare or Family Care: No Living arrangements: with family Occupation/Education: retired Additional occupation/education comments: [employer] Gender identity (if verbalized by the patient): Male Spiritual care concerns: No Meds Home Medications and Allergies Home Medications ?Medication ?Instructions ?Recorded ?Confirmed ?Type brimonidine 0.2 %-timolol 0.5 % 1 drp ophthalmic (eye) DIRECTED 04/27/22 11/02/24 History eye drops latanoprost 0.005 % eye drops 1 drp ophthalmic (eye) DIRECTED 04/27/22 11/02/24 History vit A 7,160 unit-vit C 113 mg-vit 1 tablet PO DAILY 05/15/22 11/02/24 History E 100 ljks-mvmi-erbcwl tablet finasteride 5 mg tablet 5 mg PO DAILY 05/24/23 11/02/24 History levothyroxine 100 mcg tablet 100 mcg PO QAM #90 tabs 02/01/24 11/02/24 Rx duloxetine 60 mg capsule,delayed 60 mg PO DAILY #90 caps 02/29/24 11/02/24 Rx release cranberry 500 mg capsule 500 mg PO DAILY 03/15/24 11/02/24 History tamsulosin 0.4 mg capsule 0.4 mg PO HS #90 caps 05/31/24 11/02/24 Rx metoprolol succinate 25 mg 12.5 mg PO QAM 11/02/24 11/02/24 History tablet,extended release 24 hr Allergies Allergy/AdvReac Type Severity Reaction Status Date / Time No Known Allergies Allergy Verified 11/02/24 14:35 Vital Signs Vital Signs - 24 hr 11/02/24 14:31 11/02/24 14:51 11/02/24 15:55 Temperature 97.8 F Pulse Rate 42 L 44 L 40 L Respiratory Rate 15 18 Blood Pressure 127/62 127/62 119/65 Pulse Oximetry 100 98 Oxygen Delivery Room Air 11/02/24 15:56 11/02/24 15:57 11/02/24 16:12 Temperature Pulse Rate 42 L 48 L 39 L Respiratory Rate 16 Blood Pressure 122/61 95/71 L 122/57 L Pulse Oximetry 99 Oxygen Delivery 11/02/24 17:18 11/02/24 18:29 Temperature Pulse Rate 40 L 45 L Respiratory Rate 14 14 Blood Pressure 143/65 H 141/59 H Pulse Oximetry 99 99 Oxygen Delivery Exam Const: General: comfortable and no acute distress Other: , male, nontoxic appearance HENMT: Face/Nose/Sinus: Normal nares present Mouth: Yes moist mucous membranes Eyes: General: appearance normal, both eyes and all related structures Sclera: sclerae normal Pupils: Equal, round and reactive pupils present EOM: EOMs intact bilaterally Resp: Effort & Inspection: normal respiratory effort Auscultation: clear to auscultation bilaterally Cardio: Rate: bradycardic (40s) Rhythm: regular rhythm GI: Other: Abdomen soft, nondistended, nontender. Normoactive bowel sounds in all quadrants. Skin: General skin exam: normal color and no rashes or lesions noted Wounds: no wounds Neuro: Speech: normal speech Motor exam (neuro): 5/5 motor strength present throughout Sensory Exam: normal sensation Other: A&O x4 Extrem: General: normal to inspection Psych: Mental Status: mental status grossly normal Affect: normal affect Other: Good insight and judgment, pleasant H&P: Results Labs Labs: Short CBC 11/02/24 Range/Units 14:37 WBC 5.4 (4.5-10.0) K/mm3 Hgb 13.1 L (14.0-18.0) g/dL Hct 41.0 L (42.0-52.0) % Plt Count 202 (150-375) k/mm3 BMP 11/02/24 14:37 Sodium 134 L Potassium 4.6 Chloride 98 Carbon Dioxide 29 BUN 14 Creatinine 0.61 L Glucose 79 Calcium 8.8 Cardiac Enzymes 11/02/24 11/02/24 Range/Units 14:37 18:06 Troponin I < 0.012 < 0.012 (0.000-0.034) ng/mL Liver Function 11/02/24 Range/Units 14:37 Total Bilirubin 0.9 (0.2-1.3) mg/dL AST 40 (17-59) U/L ALT 28 (6-50) U/L Alkaline Phosphatase 71 (38-126) U/L Albumin 4.2 (3.5-5.1) g/dL Assessment and Plan Assessment and plan (1) Syncope: Qualifiers: Syncope type: unspecified Qualified Code(s): R55 - Syncope and collapse Code(s): R55 - Syncope and collapse Status: Acute Assessment and Plan: Bradycardia seen on EKG, currently on metoprolol ER 25 mg. Will discontinue metoprolol. Patient also on finasteride which may be exacerbating bradycardia, will also hold. Orthostatics positive, however no change in heart rate only change in blood pressure (122/61 sitting-> 95/71 standing). Will check echo as the patient has a history of valvular disease. Reviewed labs, no significant electrolyte derangements or anemia. Troponin thus far negative. History of hypothyroidism, last TSH within normal limits in 2023. Will update. Telemetry monitoring. (2) Bradycardia: Code(s): R00.1 - Bradycardia, unspecified Status: Acute Assessment and Plan: See above (#1). (3) BPH with urinary obstruction: Code(s): N40.1 - Benign prostatic hyperplasia with lower urinary tract symptoms; N13.8 - Other obstructive and reflux uropathy Status: Acute Assessment and Plan: Continue tamsulosin. Hold finasteride, may be exacerbating bradycardia. (4) Hypothyroidism, unspecified: Qualifiers: Hypothyroidism type: unspecified Qualified Code(s): E03.9 - Hypothyroidism, unspecified Code(s): E03.9 - Hypothyroidism, unspecified Status: Acute Assessment and Plan: Continue levothyroxine. TSH within normal limits in 2023, update. (5) Anemia: Onset Date: ~05/11/24 Qualifiers: Anemia type: unspecified type Qualified Code(s): D64.9 - Anemia, unspecified Code(s): D64.9 - Anemia, unspecified Status: Acute Assessment and Plan: History of anemia. Mild macrocytic anemia noted on lab work. Hemoglobin 13.1 and MCV 101. Transfuse if less than 7. Monitor. (6) Essential (primary) hypertension: Code(s): I10 - Essential (primary) hypertension Status: Acute Assessment and Plan: Chronic. Hold metoprolol ER 25 mg daily as the patient has significant bradycardia resulting in syncope. Hydralazine p.r.n.. Monitor. Plan Diet: Heart healthy GI Prophylaxis: Not currently indicated DVT Prophylaxis: SCDs IV fluids: 1 L bolus Lines/Tubes: Peripheral IV Code Status: Full code Quality VTE Prophylaxis VTE prophylaxis: mechanical ordered Hospitalist MIPS Advance Care Plan I have confirmed that the patient's Advanced Care Plan is present, code status is documented, or surrogate decision maker is listed in patient medical record.: Yes Medication Reconciliation I have utilized all available resources to obtain, update and review the patients current medications (includes all prescriptions, OTC, herbals, cannabis, and nutritional supplements).: Yes
--- NOTE | 2024-11-02 20:30 | ADMGEN ---
This patient, Wisam Clark, was admitted to IMU Room 203-01. Patient/family oriented to hospital policies and general routines including ID bracelet, bed and alarms, visiting hours, pain management, procedures, bathroom and other care routines, personal items, smoking policy, room service/diet, and visiting hours. Information on how to activate the Rapid Response Team has been discussed. Patient/Family are encouraged to report perceived risks to care and to ask questions if they do not understand what they are told or what they should do.
[2024-11-03] VITALS (17 sets, daily range): BP systolic 111–149; BP diastolic 44–74; PULSE 43–66; RESP 16–22; TEMP 36.5–36.8; O2SAT 95–98
[2024-11-03] MEDS: TAMSULOSIN HCL 0.4 MG CAPSULE PO ×3 (00:44→21:04)
[2024-11-03] MEDS: LATANOPROST 0.005% OP SOLN 2.5 ML BTL 1 DROP EACH EYE ×2 (00:44→21:03)
[2024-11-03 02:35] LABS: Add Urine Microscopic? YES; Appearance Urine Clear (Clear); Bacteria Urine None Seen /hpf; Bilirubin Urine Negative (Negative); Blood Urine Negative (Negative); Color Urine Yellow (Yellow); Glucose Urine UA Negative (Negative); Ketones Urine Negative (Negative); Leukocyte Esterase Ur 1+ LEU/UL (Negative); Need Manual Microscopic Reviewed; Nitrate Urine Negative (Negative); Non Pathogenic Casts 0-2; Protein Urine Negative (Negative); RBC Urine 0-2 /hpf (0-2); Specific Grav Ur 1.007 (1.001-1.035); Squamous Epithelial Cell Urine None Seen /hpf (Few); Urobilinogen Urine 0.2 mg/dL (<2.0); WBC Urine 0-5 /hpf (0-3); pH Urine 6.5 (5.0-9.0)
[2024-11-03 04:54] LABS: Basophils Percent Auto 0.8 % (0.2-1.2); Eosinophils Absolute Auto 0.3 K/mm3 (0-0.3); Eosinophils Percent Auto 4.7 % (0-4.4); Hematocrit 37.2 % (42.0-52.0); Hemoglobin 12.4 g/dL (14.0-18.0); Immature Granulocyte Absolute 0.01 K/mm3 (0.00-0.031); Immature Granulocyte Percent A 0.2 % (0-0.5); Lymphocytes Absolute Auto 1.72 K/mm3 (0.9-3.2); Lymphocytes Percent Auto 32.3 % (18.3-44.2); Mean Corpuscular HGB Conc 33.3 g/dl (32-36); Mean Corpuscular Hemoglobin 32.4 pg (26-34); Mean Corpuscular Volume 97.1 fl (80-100); Mean Platelet Volume 10.5 fl (7.4-10.4); Monocytes Absolute Auto 0.7 K/mm3 (0.1-0.6); Neutrophils Absolute Auto 2.6 K/mm3 (1.3-6.7); Platelet Count Result 187 k/mm3 (150-375); Red Blood Count 3.83 M/mm3 (4.6-6.20); White Blood Count 5.3 K/mm3 (4.5-10.0)
[2024-11-03 05:07] LABS: Alanine Aminotransferase 24 U/L (6-50); Albumin Level 3.4 g/dL (3.5-5.1); Alkaline Phosphatase 69 U/L (38-126); Anion Gap 5 mmol/L (4-12); Aspartate Amino Transferase 33 U/L (17-59); Bilirubin,Total 0.6 mg/dL (0.2-1.3); Blood Urea Nitrogen 14 mg/dL (9-20); Calcium 8.3 mg/dL (8.4-10.2); Carbon Dioxide 26 mmol/L (22-30); Chloride 104 mmol/L (98-107); Estimated CRCL calculation 74 ml/min; Estimated Glomerular Filt Rate > 60; Glucose 84 mg/dL (65-110); Magnesium 1.9 mg/dL (1.6-2.3); Sodium 135 mmol/L (137-145)
[2024-11-03] MEDS: LEVOTHYROXINE SODIUM 100 MCG TABLET PO (05:49)
--- NOTE | 2024-11-03 06:00 | ECHO_ITS ---
Patient Info Name: Wisam Clark Age: 84 years : 1940 Gender: Male Ht: 68 in Wt: 139 lbs BSA: 1.74 m2 HR: 52 bpm BP: 116 / 57 mmHg Technical Quality: Good Exam Date: 11/03/2024 10:26 AM Patient Status: I Admit Date: 11/02/2024 Exam Type: CA echo doppler color flow Complete two-dimensional, color flow and Doppler transthoracic echocardiogram is performed. Staff Referring Physician: Luis F Wright MD Pmp Project Manager: Gerri Oconnor Attending Provider: Tawanda Cerda Summary 1. Complete two-dimensional, color flow and Doppler transthoracic echocardiogram is performed. 2. Left ventricular chamber dimension is normal. 3. Left ventricular systolic function is normal, estimated at 65-70. 4. There is mild concentric increased left ventricular wall thickness. 5. The left ventricular diastolic function is abnormal. 6. E/e' 17 is elevated. 7. Left atrial chamber dimension is moderately enlarged. 8. Right atrial chamber dimension is mildly enlarged. 9. There is mild aortic valve sclerosis. 10. There is mild to moderate aortic valve regurgitation. 11. The mitral valve has mild posterior prolapse. 12. There is moderate mitral valve regurgitation, anteriorly directed. 13. There is mild to moderate tricuspid valve regurgitation. 14. No pulmonary hypertension, estimated pulmonary arterial systolic pressure is 34 mmHg. 15. The aortic root size at the sinus of Valsalva is borderline dilated at 4.0 cm. 16. The prox ascending aorta size is mildly dilated at 4.3 cm. Left Ventricle E/e' 17 is elevated. Left ventricular chamber dimension is normal. Left ventricular systolic function is normal, estimated at 65-70. There is mild concentric increased left ventricular wall thickness. The left ventricular diastolic function is abnormal. Right Ventricle Right ventricular chamber dimension is normal. Right ventricular systolic function is normal and with normal TAPSE 2.3 cm. Left Atria Left atrial chamber dimension is moderately enlarged. Right Atria Right atrial chamber dimension is mildly enlarged. Aortic Valve The aortic valve is trileaflet. There is mild aortic valve sclerosis. There is no aortic valve stenosis. There is mild to moderate aortic valve regurgitation. Pulmonic Valve There is no pulmonic regurgitation. Mitral Valve The mitral valve has mild posterior prolapse. There is no mitral valve stenosis. There is moderate mitral valve regurgitation, anteriorly directed. Tricuspid Valve There is mild to moderate tricuspid valve regurgitation. No pulmonary hypertension, estimated pulmonary arterial systolic pressure is 34 mmHg. Pericardium/Pleural There is no pericardial effusion. Inferior Vena Cava Normal inferior vena cava with >50% collapse upon inspiration consistent with normal right atrial pressure, 5 mmHg. Aorta The aortic root size at the sinus of Valsalva is borderline dilated at 4.0 cm. The prox ascending aorta size is mildly dilated at 4.3 cm. Left Ventricular Outflow Tract Name Value Normal LVOT 2D LVOT Diameter 2.1 cm LVOT Doppler LVOT Peak Velocity 501 cm/s LVOT Peak Gradient 100 mmHg LVOT Mean Gradient 61 mmHg LVOT VTI 145 cm LVOT VTI/AV VTI Ratio 2.1 LVOT Stroke Volume 499 ml LVOT CO 76.4 l/min LVOT CI 44.0 l/min/m2 Pulmonic Valve Name Value Normal PV Doppler PV Peak Velocity 98 cm/s PV Peak Gradient 4 mmHg Mitral Valve Name Value Normal MV Diastolic Function MV E Peak Velocity 100 cm/s MV A Peak Velocity 79 cm/s MV E/A 1.3 MV Decel Time (PW) 221 ms MV Annular TDI MV E/e' (Septal) 21.2 MV E/e' (Lateral) 14.4 MV E/e' (Average) 17.8 Tricuspid Valve Name Value Normal TV Regurgitation Doppler TR Peak Velocity 269 cm/s TR Peak Gradient 22 mmHg Estimated PAP/RSVP RA Pressure 5 mmHg <=5 PA Systolic Pressure 34 mmHg <36 RV Systolic Pressure 34 mmHg <36 TV Annular TDI TV Lateral Kalyn s' Velocity 15.9 cm/s >=9.5 Aorta Name Value Normal Ascending Aorta Ao Root Diameter (MM) 4.2 cm Ao Root Diam Index (MM) 2.4 cm/m2 Aortic Valve Name Value Normal AV Doppler AV Peak Velocity 244 cm/s AV Peak Gradient 24 mmHg AV Mean Gradient 14 mmHg AV VTI 71 cm AV Area (Cont Eq VTI) 7.1 cm2 >=3.0 AV Area (Cont Eq Antony) 7.0 cm2 AV DI (Antony) 2.05 AV Regurgitation 2D LVOT Area 3.4 cm2 Ventricles Name Value Normal LV Dimensions 2D/MM IVS Diastolic Thickness (2D) 1.5 cm 0.6-1.0 LVID Diastole (2D) 4.1 cm 4.2-5.8 LVIW Diastolic Thickness (2D) 1.1 cm 0.6-1.0 LVID Systole (2D) 2.7 cm 2.5-4.0 LVOT Diameter 2.1 cm LV Mass (2D Cubed) 198.64 g 88.00-224.00 LV Mass Index (2D Cubed) 114 g/m2 49-115 Relative Wall Thickness (2D) 0.55 <=0.42 LV Fractional Shortening/Ejection Fraction 2D/MM LV Fractional Shortening (2D) 35 % 25-43 LV EF (2D Teichholz) 65 % LV Diastolic Volume (4C MOD) 111 ml LV EF (4C MOD) 72 % LV Diastolic Volume (2C MOD) 145 ml LV EF (2C MOD) 70 % LV Diastolic Volume (BP MOD) 129 ml 62-150 LV Diastolic Volume Index (BP MOD) 74 ml/m2 34-74 LV Systolic Volume (BP MOD) 38 ml 21-61 LV Systolic Volume Index (BP MOD) 22 ml/m2 11-31 LV EF (BP MOD) 71 % 52-72 LV Diastolic Length (4C) 8.4 cm LV Systolic Length (4C) 6.6 cm LV Stroke Volume (4C MOD) 80 ml RV Dimensions 2D/MM RVID Diastole (2D) 4.7 cm 2.1-3.5 Atria Name Value Normal LA Dimensions LA Dimension (MM) 3.9 cm 3.0-4.0 LA Volume (4C A-L) 47 ml LA Volume (BP A-L) 76 ml RA Dimensions RA Systolic Major Magazine Length (4C) 5.7 cm 2.1-2.7 RA Area (4C) 21.1 cm2 <=18.0 Report Signatures
[2024-11-03] MEDS: DULoxetine HCL 60 MG CAPSULE.DR PO (09:39)
[2024-11-03] MEDS: MULTIVITAMINS /C LUTEIN (CENTRUM SILVER) TABLET *BKC 1 TAB PO (09:39)
[2024-11-03] MEDS: BRIMONIDINE TARTRATE 0.2% OP SOLN 5 ML BTL 1 DROP RIGHT EYE ×2 (09:40→17:02)
--- NOTE | 2024-11-03 10:36 | PM.IMPN ---
Progress Note: A&P Assessment and Plan (1) Syncope: Qualifiers: Syncope type: unspecified Qualified Code(s): R55 - Syncope and collapse Code(s): R55 - Syncope and collapse Status: Acute Assessment and Plan: Bradycardia seen on EKG, currently on metoprolol ER 25 mg. Will discontinue metoprolol. Patient also on finasteride which may be exacerbating bradycardia, will also hold. Orthostatics positive, however no change in heart rate only change in blood pressure (122/61 sitting-> 95/71 standing). Will check echo as the patient has a history of valvular disease. Reviewed labs, no significant electrolyte derangements or anemia. Troponin thus far negative. History of hypothyroidism, last TSH within normal limits in 2023. Will update. Telemetry monitoring. If stable- no intervention needed, will move out of IMU and watch over night. If stable- will anticipate discharge in am will order a bit more IV fluids for orthostatic hypotension. continue fall precautions (2) Bradycardia: Code(s): R00.1 - Bradycardia, unspecified Status: Acute Assessment and Plan: See above (#1). (3) BPH with urinary obstruction: Code(s): N40.1 - Benign prostatic hyperplasia with lower urinary tract symptoms; N13.8 - Other obstructive and reflux uropathy Status: Acute Assessment and Plan: Continue tamsulosin. ok to restart finasteride (4) Hypothyroidism, unspecified: Qualifiers: Hypothyroidism type: unspecified Qualified Code(s): E03.9 - Hypothyroidism, unspecified Code(s): E03.9 - Hypothyroidism, unspecified Status: Acute Assessment and Plan: Continue levothyroxine. TSH within normal limits in 2023, update. (5) Anemia: Onset Date: ~05/11/24 Qualifiers: Anemia type: unspecified type Qualified Code(s): D64.9 - Anemia, unspecified Code(s): D64.9 - Anemia, unspecified Status: Acute Assessment and Plan: History of anemia. Mild macrocytic anemia noted on lab work. Hemoglobin 13.1 and MCV 101. Transfuse if less than 7. Monitor. (6) Essential (primary) hypertension: Code(s): I10 - Essential (primary) hypertension Status: Acute Assessment and Plan: Chronic. Hold metoprolol ER 25 mg daily as the patient has significant bradycardia resulting in syncope. Hydralazine p.r.n.. Monitor. Plan Diet: Heart healthy GI Prophylaxis: Not currently indicated DVT Prophylaxis: SCDs IV fluids: 1 L bolus Lines/Tubes: Peripheral IV Code Status: Full code Time Spent With Patient Time with patient: 25 - 35 minutes Subjective Date/time seen: 11/03/24 10:36 Interval history: 84 y/o M with PMH of anemia, BPH, glaucoma, hypertension, meningioma, overactive bladder, cardiomyopathy, and hypothyroidism presents here with syncope. Initial VS at presentation: 97.8? F, HR 42, RR 15, 127/62, and 100% on RA. ED workup showed: No leukocytosis, hemoglobin at baseline, sodium 134, creatinine 0.61 and GFR >60, glucose 79, no significant electrolyte derangements, BNP 341 (normal when adjusted for age). CXR showed bibasilar atelectasis without focal infiltrate or effusion. Head CT showed no acute intracranial findings and a meningioma in the left frontal lobe unchanged from previous examination. Initial EKG showed marked sinus bradycardia with a junctional escape beat, anterolateral NH, rate 37. Cardiology consulted. Review of Systems Review of Systems: All systems reviewed & are unremarkable except as noted in HPI and below Exam Const: General: comfortable and no acute distress Other: , male, nontoxic appearance HENMT: Face/Nose/Sinus: Normal nares present Mouth: Yes moist mucous membranes Eyes: General: appearance normal, both eyes and all related structures Sclera: sclerae normal Pupils: Equal, round and reactive pupils present EOM: EOMs intact bilaterally Resp: Effort & Inspection: normal respiratory effort Auscultation: clear to auscultation bilaterally Cardio: Rate: bradycardic (40s) Rhythm: regular rhythm GI: Other: Abdomen soft, nondistended, nontender. Normoactive bowel sounds in all quadrants. Skin: General skin exam: normal color and no rashes or lesions noted Wounds: no wounds Neuro: Cranial nerves: Yes Equal, round and reactive pupils present Speech: normal speech Motor exam (neuro): 5/5 motor strength present throughout Sensory Exam: normal sensation Other: A&O x4 Extrem: General: normal to inspection Psych: Mental Status: mental status grossly normal Affect: normal affect Other: Good insight and judgment, pleasant Objective Data Vital Signs Vital Signs: Vital Signs - 24 hr 11/02/24 14:31 11/02/24 14:51 11/02/24 15:55 Temperature 97.8 F Pulse Rate 42 L 44 L 40 L Respiratory Rate 15 18 Blood Pressure 127/62 127/62 119/65 Pulse Oximetry 100 98 Oxygen Delivery Room Air Fraction of Inspired Oxygen 11/02/24 15:56 11/02/24 15:57 11/02/24 16:12 Temperature Pulse Rate 42 L 48 L 39 L Respiratory Rate 16 Blood Pressure 122/61 95/71 L 122/57 L Pulse Oximetry 99 Oxygen Delivery Fraction of Inspired Oxygen 11/02/24 17:18 11/02/24 18:29 11/02/24 19:58 Temperature Pulse Rate 40 L 45 L 45 L Respiratory Rate 14 14 17 Blood Pressure 143/65 H 141/59 H 162/56 H Pulse Oximetry 99 99 99 Oxygen Delivery Fraction of Inspired Oxygen 11/02/24 20:19 11/02/24 20:21 11/02/24 20:22 Temperature 98.4 F Pulse Rate 45 L Respiratory Rate 17 Blood Pressure 154/76 H 154/76 H 154/80 H Pulse Oximetry 100 Oxygen Delivery Fraction of Inspired Oxygen 11/02/24 20:30 11/02/24 22:00 11/02/24 23:44 Temperature Pulse Rate 47 L 60 Respiratory Rate 20 Blood Pressure Pulse Oximetry 94 Oxygen Delivery Room Air Room Air Fraction of Inspired Oxygen 21 11/02/24 23:58 11/03/24 00:00 11/03/24 00:00 Temperature 98.4 F Pulse Rate 49 L 46 L Respiratory Rate 17 Blood Pressure 101/45 L Pulse Oximetry 100 Oxygen Delivery Room Air Fraction of Inspired Oxygen 11/03/24 02:00 11/03/24 03:44 11/03/24 03:44 Temperature Pulse Rate 45 L 45 L Respiratory Rate Blood Pressure Pulse Oximetry Oxygen Delivery Room Air Fraction of Inspired Oxygen 11/03/24 03:52 11/03/24 06:00 11/03/24 07:35 Temperature 98.2 F 98.0 F Pulse Rate 45 L 46 L 45 L Respiratory Rate 17 16 Blood Pressure 116/57 L 149/72 H Pulse Oximetry 95 96 Oxygen Delivery Fraction of Inspired Oxygen 11/03/24 09:25 Temperature 98.1 F Pulse Rate 47 L Respiratory Rate 22 H Blood Pressure 111/44 L Pulse Oximetry 97 Oxygen Delivery Fraction of Inspired Oxygen Intake/Output Intake/Output: Intake & Output 10/31/24 11/01/24 11/02/24 11/03/24 23:59 23:59 23:59 23:59 Intake Total 1000 730 Output Total 650 1100 Balance 350 -370 Meds/Results Medications: Active Medications Generic Name Dose Route Start Last Admin Trade Name Freq PRN Reason Stop Dose Admin Acetaminophen 650 mg 11/02/24 17:55 Acetaminophen 325 Mg Tablet PO Q4H PRN Mild Pain (1-3) or Fever Hydrocodone Bitart/Acetaminophen 1 tab 11/02/24 17:55 Hydrocodone/Acetaminophen (*Crx) 5-325 Mg Tablet PO Q4H PRN Pain Rated 4-6 Brimonidine Tartrate 1 drop 11/02/24 23:55 11/03/24 09:40 Brimonidine Tartrate 0.2% Op Soln 5 Ml Btl RIGHT EYE 1 drop Q12HR TOVA Administration Duloxetine HCl 60 mg 11/03/24 09:00 11/03/24 09:39 Duloxetine Hcl 60 Mg Capsule.Dr PO 60 mg DAILY TOVA Administration Hydralazine HCl 10 mg 11/02/24 19:47 Hydralazine Hcl 20 Mg/Ml Vial IV PUSH Q8H PRN BP greater than 180/90 Latanoprost 1 drop 11/02/24 23:55 11/03/24 00:44 Latanoprost 0.005% Op Soln 2.5 Ml Btl EACH EYE 1 drop QHS TOVA Administration Levothyroxine Sodium 100 mcg 11/03/24 06:30 11/03/24 05:49 Levothyroxine Sodium 100 Mcg Tablet PO 100 mcg DAILY@0630 TOVA Administration Multivitamins/Minerals 1 tab 11/03/24 09:00 11/03/24 09:39 Multivitamins /C Lutein (Centrum Silver) Tablet *Bkc PO 1 tab QAM TOVA Administration Non-Formulary Medication 0 each 11/03/24 23:55 Nonformulary Nutritional Supplement XX 11/03/24 23:56 ONCE ONE Perflutren Lipid Microsphere 0 ml 11/02/24 18:01 Perflutren Lipid Microspheres 1.5 Ml Vial Diluted To 10 Ml Total Volume IV PUSH 11/05/24 18:02 ONCE PRN adequate visualization Protocol Tamsulosin HCl 0.4 mg 11/02/24 23:55 11/03/24 00:44 Tamsulosin Hcl 0.4 Mg Capsule PO 0.4 mg HS TOVA Administration Timolol Maleate 1 drop 11/02/24 23:55 11/03/24 09:40 Timolol Maleate 0.5% Op Soln 5 Ml Bottle RIGHT EYE Not Given Q12HR [facility] Radiology Results: ITS Impressions Chest X-Ray 11/02/24 15:20 IMPRESSION: Bibasilar atelectasis, without focal infiltrate or effusion. Head CT 11/02/24 15:23 IMPRESSION: No acute intracranial findings. Meningioma in the left frontal lobe unchanged from previous examination. Labs Labs: Laboratory Results - last 24 hr 11/02/24 11/02/24 11/02/24 14:37 18:06 22:59 WBC 5.4 RBC 4.06 L Hgb 13.1 L Hct 41.0 L MCV 101.0 H MCH 32.3 MCHC 32.0 RDW 14.0 Plt Count 202 MPV 10.5 H Immature Gran % (Auto) 0.2 Neut % (Auto) 52.1 Lymph % (Auto) 33.0 Dane % (Auto) 10.1 H Eos % (Auto) 3.7 Baso % (Auto) 0.9 Lymph # (Auto) 1.77 Dane # (Auto) 0.5 Eos # (Auto) 0.2 Baso # (Auto) 0.1 Abs Immat Gran (auto) 0.01 Absolute Neuts (auto) 2.8 Absolute Nucleated RBC 0.000 Nucleated RBC % 0.0 Sodium 134 L Potassium 4.6 Chloride 98 Carbon Dioxide 29 Anion Gap 7 BUN 14 Creatinine 0.61 L Estim Creat Clear Calc 74 Estimated GFR > 60 Glucose 79 Calcium 8.8 Magnesium Total Bilirubin 0.9 AST 40 ALT 28 Alkaline Phosphatase 71 Troponin I < 0.012 < 0.012 NT-Pro-B Natriuret Pep 341 H Total Protein 7.0 Albumin 4.2 TSH (Reflex) Urine Color Yellow Urine Appearance Clear Urine pH 6.5 Ur Specific Proctor 1.007 Urine Protein Negative Urine Glucose (UA) Negative Urine Ketones Negative Ur Blood (Man) Negative Urine Nitrate Negative Urine Bilirubin Negative Urine Urobilinogen 0.2 Add Ur Microanalysis Reviewed Leukocyte Esterase Rfl 1+ H Urine RBC 0-2 Urine WBC 0-5 Ur Squamous Epith Cells None seen Urine Bacteria None seen Urine Casts 0-2 11/03/24 04:03 WBC 5.3 RBC 3.83 L Hgb 12.4 L Hct 37.2 L MCV 97.1 MCH 32.4 MCHC 33.3 RDW 14.0 Plt Count 187 MPV 10.5 H Immature Gran % (Auto) 0.2 Neut % (Auto) 49.0 Lymph % (Auto) 32.3 Dane % (Auto) 13.0 H Eos % (Auto) 4.7 H Baso % (Auto) 0.8 Lymph # (Auto) 1.72 Dane # (Auto) 0.7 H Eos # (Auto) 0.3 Baso # (Auto) 0.0 Abs Immat Gran (auto) 0.01 Absolute Neuts (auto) 2.6 Absolute Nucleated RBC 0.000 Nucleated RBC % 0.0 Sodium 135 L Potassium 4.0 Chloride 104 Carbon Dioxide 26 Anion Gap 5 BUN 14 Creatinine 0.56 L Estim Creat Clear Calc 74 Estimated GFR > 60 Glucose 84 Calcium 8.3 L Magnesium 1.9 Total Bilirubin 0.6 AST 33 ALT 24 Alkaline Phosphatase 69 Troponin I NT-Pro-B Natriuret Pep Total Protein 6.0 L Albumin 3.4 L TSH (Reflex) 1.640 Urine Color Urine Appearance Urine pH Ur Specific Proctor Urine Protein Urine Glucose (UA) Urine Ketones Ur Blood (Man) Urine Nitrate Urine Bilirubin Urine Urobilinogen Add Ur Microanalysis Leukocyte Esterase Rfl Urine RBC Urine WBC Ur Squamous Epith Cells Urine Bacteria Urine Casts Quality VTE Prophylaxis VTE prophylaxis: mechanical ordered
--- NOTE | 2024-11-03 12:42 | P.CONCA_ITS ---
Assessment and Plan Assessment and plan (1) Orthostasis: Code(s): I95.1 - Orthostatic hypotension Status: Acute (2) Bradycardia: Code(s): R00.1 - Bradycardia, unspecified Status: Acute (3) Essential (primary) hypertension: Code(s): I10 - Essential (primary) hypertension Status: Acute Plan 84 year old man with hypertension and hypothyroidism presents with syncope Syncope -likely multifactorial but mainly orthostatic worsened by chronotropic suppression from metoprolol -can stop metoprolol indefinitely -encourage oral hydration Bradycardia -if he continues to have exertional symptoms or lightheadedness/syncope, the move evaluate him for permanent pacemaker with a 30 day event monitor Hypertension -his blood pressure is relatively stable without the metoprolol at this time No further inpatient cardiac workup warranted. Cardiology will sign off. History of Present Illness History of Present Illness Consult date/time: 11/03/24 12:42 Requesting physician: Toshia Cunningham APRN Reason For Visit: Bradycardia, Orthostatis, Syncope Narrative: 84 year old man with hypertension and hypothyroidism presents with syncope. He was sitting in his recliner which he became lightheaded and dizzy subtle from his recliner he quickly fell to the floor losing consciousness. His he was in the next room we came over and by the time she arrived the patient had her the repair consciousness. He denies any chest pain or shortness of breath. Over the past month he has been noticing physician of lightheadedness. It typically occurs when he changes from seated/supine to standing position. He has also noted exertional dyspnea such as walking up hill he will become short of breath and this is relatively new past 2 months. Few times he had cut his metoprolol dose and have and on rare occasion, he had skipped his metoprolol doses and does seem to have significantly improved his symptoms. No orthopnea. Review of Systems 2 Cardiovascular: Cardiovascular: Reports as per HPI Respiratory: Respiratory: Reports as per HPI [facility] Past Medical History Medical History Dizziness Anemia (~05/11/24) hemoglobin 13.1 with MCV 102 on 05/11/2024. Itchy skin (~09/2023) Anterior neck bilaterally without rash resolved with prednisone BPH with urinary obstruction Acute non-recurrent maxillary sinusitis Encounter for prostate cancer screening PSA 0.38 on 05/12/2023. 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 Self catheterization 3 times daily and consideration InterStim Hiccups (~11/25/21) BMI 24.0-24.9, adult Pulmonary asbestosis Glaucoma Urinary retention UTI (urinary tract infection) BMI 25.0-25.9,adult Contact dermatitis and eczema due to plant Essential (primary) hypertension Meningioma (~12/2019) 4.2 cm meningioma left frontal lobe unchanged on MRI of the brain 11/14/2022 with chronic small-vessel disease unchanged. Overactive bladder Frontal mass of brain Meningioma Cardiomyopathy Heart murmur on physical examination Echocardiogram 04/28/2019 with mild aortic and tricuspid valve regurgitation Polyp of colon Hypothyroidism, unspecified TSH 1.79 with free T4 1.9 on 04/21/2022. TSH 2.38 with free T4 at 1.3 on 05/12/2023. TSH 1.80 on 05/11/2024. Abnormal fasting glucose Glucose 92 with hemoglobin A1c 5.6 on 04/21/2022. Fasting glucose 98 with hemoglobin A1c 5.4 on 05/12/2023. Glucose 110 with hemoglobin A1c 5.8 and GFR 95 on 05/11/2024. Chronic low back pain with right-sided sciatica CT myelogram 10/21/2022 with diffuse spondylosis with severe bilateral neuroforaminal stenosis at T12-L1 and moderate to severe neuroforaminal bilateral stenosis at L4-L5 and L5-S1. MRI lumbar spine 10/15/2023 with fusion L1 through L4 with moderate to severe spondylosis. Severe neural foraminal narrowing bilaterally at L4-L5 and L5-S1. BPH without obstruction/lower urinary tract symptoms Nocturia PSA 0.4 on 04/21/2022. Surgical History Surgical History H/O repair of left rotator cuff 03/21/2024 History of hernia surgery History of lumbar fusion Family History Family History (Updated 11/02/24 @ 20:48 by Gerri Uriostegui RN) Father Family history of alcoholism, Onset Age: 68 Mother Cerebrovascular accident, Onset Age: 88 Myocardial infarction Abdominal aortic aneurysm (AAA) Sepsis Social History Social History Smoking status: Never smoker Second hand tobacco smoke exposure: No Alcohol intake: never Alcohol use details: STATES MAYBE 1-2 BEERS A MONTH Substance use: never Substance use type: does not use Do You Feel Safe in your Home?: Yes Lack of Transportation: YES Lack of Food: Never True Current Housing: I Have Housing Concerned About Future Housing: No Difficulty Paying Gas/Electric Bills: No Difficulty Paying for Meds: No Currently Unemployed: No Education: High School Diploma/GED Difficulty w/ Childcare or Family Care: No Living arrangements: with family Occupation/Education: retired Additional occupation/education comments: [employer] Gender identity (if verbalized by the patient): Male Spiritual care concerns: No Meds Home Medications and Allergies Home Medications ?Medication ?Instructions ?Recorded ?Confirmed ?Type brimonidine 0.2 %-timolol 0.5 % 1 drp ophthalmic (eye) DIRECTED 04/27/22 11/02/24 History eye drops latanoprost 0.005 % eye drops 1 drp ophthalmic (eye) DIRECTED 04/27/22 11/02/24 History vit A 7,160 unit-vit C 113 mg-vit 1 tablet PO DAILY 05/15/22 11/02/24 History E 100 [id number] tablet finasteride 5 mg tablet 5 mg PO DAILY 05/24/23 11/02/24 History levothyroxine 100 mcg tablet 100 mcg PO QAM #90 tabs 02/01/24 11/02/24 Rx duloxetine 60 mg capsule,delayed 60 mg PO DAILY #90 caps 02/29/24 11/02/24 Rx release cranberry 500 mg capsule 500 mg PO DAILY 03/15/24 11/02/24 History tamsulosin 0.4 mg capsule 0.4 mg PO HS #90 caps 05/31/24 11/02/24 Rx metoprolol succinate 25 mg 12.5 mg PO QAM 11/02/24 11/02/24 History tablet,extended release 24 hr Allergies Allergy/AdvReac Type Severity Reaction Status Date / Time No Known Allergies Allergy Verified 11/03/24 00:58 Vital Signs Vital Signs - 24 hr 11/02/24 14:31 11/02/24 14:51 11/02/24 15:55 Temperature 36.6 C Pulse Rate 42 L 44 L 40 L Respiratory Rate 15 18 Blood Pressure 127/62 127/62 119/65 Pulse Oximetry 100 98 Oxygen Delivery Room Air Fraction of Inspired Oxygen 11/02/24 15:56 11/02/24 15:57 11/02/24 16:12 Temperature Pulse Rate 42 L 48 L 39 L Respiratory Rate 16 Blood Pressure 122/61 95/71 L 122/57 L Pulse Oximetry 99 Oxygen Delivery Fraction of Inspired Oxygen 11/02/24 17:18 11/02/24 18:29 11/02/24 19:58 Temperature Pulse Rate 40 L 45 L 45 L Respiratory Rate 14 14 17 Blood Pressure 143/65 H 141/59 H 162/56 H Pulse Oximetry 99 99 99 Oxygen Delivery Fraction of Inspired Oxygen 11/02/24 20:19 11/02/24 20:21 11/02/24 20:22 Temperature 36.9 C Pulse Rate 45 L Respiratory Rate 17 Blood Pressure 154/76 H 154/76 H 154/80 H Pulse Oximetry 100 Oxygen Delivery Fraction of Inspired Oxygen 11/02/24 20:30 11/02/24 22:00 11/02/24 23:44 Temperature Pulse Rate 47 L 60 Respiratory Rate 20 Blood Pressure Pulse Oximetry 94 Oxygen Delivery Room Air Room Air Fraction of Inspired Oxygen 11/02/24 23:58 11/03/24 00:00 11/03/24 00:00 Temperature 36.9 C Pulse Rate 49 L 46 L Respiratory Rate 17 Blood Pressure 101/45 L Pulse Oximetry 100 Oxygen Delivery Room Air Fraction of Inspired Oxygen 11/03/24 02:00 11/03/24 03:44 11/03/24 03:44 Temperature Pulse Rate 45 L 45 L Respiratory Rate Blood Pressure Pulse Oximetry Oxygen Delivery Room Air Fraction of Inspired Oxygen 11/03/24 03:52 11/03/24 06:00 11/03/24 07:35 Temperature 36.8 C 36.7 C Pulse Rate 45 L 46 L 45 L Respiratory Rate 17 16 Blood Pressure 116/57 L 149/72 H Pulse Oximetry 95 96 Oxygen Delivery Fraction of Inspired Oxygen 11/03/24 09:25 11/03/24 11:34 Temperature 36.7 C 36.8 C Pulse Rate 47 L 43 L Respiratory Rate 22 H 20 Blood Pressure 111/44 L 124/71 Pulse Oximetry 97 96 Oxygen Delivery Fraction of Inspired Oxygen Exam 2 Const: General: comfortable HENMT: Mouth: Yes dry mucous membranes Eyes: EOM: EOMs intact bilaterally Neck: Neck: no JVD Resp: Effort & Inspection: normal respiratory effort Auscultation: clear to auscultation bilaterally Cardio: Rate: bradycardic Rhythm: regular rhythm GI: GI Palp: Yes Soft to palpation Extrem: General: no pedal edema Results Labs and Meds 11/03/24 04:03 11/03/24 04:03 Lab results: Cardiac Enzymes 11/02/24 11/02/24 11/03/24 Range/Units 14:37 18:06 04:03 AST 40 33 (17-59) U/L Troponin I < 0.012 < 0.012 (0.000-0.034) ng/mL CBC 11/02/24 11/03/24 Range/Units 14:37 04:03 WBC 5.4 5.3 (4.5-10.0) K/mm3 RBC 4.06 L 3.83 L (4.6-6.20) M/mm3 Hgb 13.1 L 12.4 L (14.0-18.0) g/dL Hct 41.0 L 37.2 L (42.0-52.0) % Plt Count 202 187 (150-375) k/mm3 Lymph # (Auto) 1.77 1.72 (0.9-3.2) K/mm3 [place] # (Auto) 0.5 0.7 H (0.1-0.6) K/mm3 Eos # (Auto) 0.2 0.3 (0-0.3) K/mm3 Baso # (Auto) 0.1 0.0 (0.0-0.1) K/mm3 Comprehensive Metabolic Panel 11/02/24 11/03/24 Range/Units 14:37 04:03 Sodium 134 L 135 L (137-145) mmol/L Potassium 4.6 4.0 (3.4-5.0) mmol/L Chloride 98 104 (98-107) mmol/L Carbon Dioxide 29 26 (22-30) mmol/L BUN 14 14 (9-20) mg/dL Creatinine 0.61 L 0.56 L (0.7-1.3) mg/dL Glucose 79 84 (65-110) mg/dL Calcium 8.8 8.3 L (8.4-10.2) mg/dL AST 40 33 (17-59) U/L ALT 28 24 (6-50) U/L Alkaline Phosphatase 71 69 (38-126) U/L Total Protein 7.0 6.0 L (6.3-8.2) g/dL Albumin 4.2 3.4 L (3.5-5.1) g/dL Intake and Output 11/02/24 11/03/24 11/03/24 23:59 07:59 15:59 Intake Total 1000 250 720 Output Total 650 500 600 Balance 350 -250 120 Intake: IV 1000 Sodium Chloride 0.9% IV 1,000 1000 ml @ 999 mls/hr IV CONT .Q1H1M [facility] Rx#:[id number] Oral 250 720 Output: Urine 650 500 600 Patient Weight 11/03/24 23:59 Weight 69.1 kg
[2024-11-03] MEDS: SODIUM CHLORIDE 0.9% IV 1,000 ML 100 ML IV CONT (14:56)
[2024-11-03] MEDS: FINASTERIDE 5 MG TABLET PO (14:56)
--- NOTE | 2024-11-03 17:24 | PC.NURSE ---
Pt transferred to room 304 bed 2 at 1721. Report given to ЮЛИЯ Velasco.
[2024-11-03] MEDS: TIMOLOL MALEATE 0.5% OP SOLN 5 ML BOTTLE 1 DROP RIGHT EYE (21:02)
[2024-11-04] VITALS: PULSE 49
[2024-11-04 04:00] VITALS: PULSE 57
[2024-11-04 04:47] VITALS: BP 135/70; PULSE 77; RESP 14; TEMP 36.6; O2SAT 98
[2024-11-04] MEDS: LEVOTHYROXINE SODIUM 100 MCG TABLET PO (05:47)
[2024-11-04 08:00] VITALS: PULSE 48
--- NOTE | 2024-11-04 08:04 | P.DS_ITS ---
DS: Admitting Diagnosis Discharge Date 11/04 Admitting Diagnosis syncope DS: Discharge Diagnosis Discharge Diagnosis (1) Syncope: Qualifiers: Syncope type: unspecified Qualified Code(s): R55 - Syncope and collapse Code(s): R55 - Syncope and collapse Status: Acute (2) Bradycardia: Code(s): R00.1 - Bradycardia, unspecified Status: Acute Assessment and Plan: (3) BPH with urinary obstruction: Code(s): N40.1 - Benign prostatic hyperplasia with lower urinary tract symptoms; N13.8 - Other obstructive and reflux uropathy Status: Acute (4) Hypothyroidism, unspecified: Qualifiers: Hypothyroidism type: unspecified Qualified Code(s): E03.9 - Hypothyroidism, unspecified Code(s): E03.9 - Hypothyroidism, unspecified Status: Acute (5) Anemia: Onset Date: ~05/11/24 Qualifiers: Anemia type: unspecified type Qualified Code(s): D64.9 - Anemia, unspecified Code(s): D64.9 - Anemia, unspecified Status: Acute (6) Essential (primary) hypertension: Code(s): I10 - Essential (primary) hypertension Status: Acute DS: Summary Hospital Course Hospital Course: 84 year old man with hypertension and hypothyroidism presents with syncope. Cardiology was consulted. Bradycardia seen on EKG, currently on metoprolol ER 25 mg. Cardiology discontinued metoprolol. Orthostatics positive- received gentle hydration. Syncope is likely multifactorial but mostly orthostatic worsened by chronotropic suppression from metoprolol. He was moved out of IMU 11/03 and observed - remained stable- HR mostly in mid 70's. No lightheadedness, no dizziness. Stable to be discharged. If continues to have sympotms- need a close f/u with cardiology and a 30 day event monitor and eval for permanent pacemaker. Hypertension - blood pressure is relatively stable without the metoprolol at this time. will discharge without any medication- need to monitor BP daily and keep log. Close f/u with PCP and /or cardiology for further eval. Time Spent with Patient Time attestation: Total time spent providing and/or coordinating discharge services: Exam Const: General: comfortable and no acute distress HENMT: Face/Nose/Sinus: Normal nares present Mouth: Yes moist mucous membranes Eyes: General: appearance normal, both eyes and all related structures Sclera: sclerae normal Pupils: Equal, round and reactive pupils present EOM: EOMs intact bilaterally Resp: Effort & Inspection: normal respiratory effort Auscultation: clear to auscultation bilaterally Cardio: Rate: regular rate Rhythm: regular rhythm GI: Other: Abdomen soft, nondistended, nontender. Normoactive bowel sounds in all quadrants. Skin: General skin exam: normal color and no rashes or lesions noted Wounds: no wounds Neuro: Cranial nerves: Yes Equal, round and reactive pupils present Speech: normal speech Motor exam (neuro): 5/5 motor strength present throughout Sensory Exam: normal sensation Other: A&O x4 Extrem: General: normal to inspection Psych: Mental Status: mental status grossly normal Affect: normal affect Other: Good insight and judgment, pleasant Discharge Plan Discharge Attending physician on discharge: Tawanda Cerda Consulting providers: Diallo Rowell Discharging Clinician: Toshia Cunningham Patient Disposition: Home Activity: october shower Diet: heart healthy Discharge Instructions: You were admitted with syncope. Cardiology was consulted- recommended for you to stop metoprolol. You received IV fluids. Please monitor your BP daily in am and keep log. Bring the log for review. Cardiology advised that if you continues to have symptoms- need a close f/u with cardiology and a 30 day event monitor and eval for permanent pacemaker. Please change positions closely, avoid alcohol. Patient Instructions: Antibiotic Form, Syncope (GEN), Bradycardia (GEN) Patient Language: Citizen Of [place] Stand Alone Forms: General Discharge Information Follow-up/Referrals: Diallo Rowell MD [Physician] - 2 Weeks Jonah Glynn MD [Primary Care Provider] - 2 Weeks Discharge Medications: Continued latanoprost 0.005 % drops 1 drp ophthalmic (eye) DIRECTED brimonidine-timolol 0.2-0.5 % drops 1 drp ophthalmic (eye) DIRECTED vit A-vit C-vit [id number] tablet 1 tablet PO DAILY cranberry 500 mg Capsule 500 mg PO DAILY Rx Instructions: administer with meals finasteride 5 mg tablet 5 mg PO DAILY levothyroxine 100 mcg tablet 100 mcg PO QAM Qty: 90 3RF duloxetine 60 mg capsule,delayed release(DR/EC) 60 mg PO DAILY Qty: 90 3RF tamsulosin 0.4 mg capsule 0.4 mg PO HS Qty: 90 3RF Discontinued metoprolol succinate 25 mg tablet extended release 24 hr 12.5 mg PO QAM Patient Comments: told by MD to cut 25mg in half. Date of admission: 11/02/24 17:55 Primary Care Provider: Jonah Glynn Admitting Provider: Tawanda Cerda Attending physician on admission: Tawanda Cerda Condition: Stable Quality VTE Prophylaxis VTE prophylaxis: mechanical ordered Hospitalist MIPS Heart Failure (Exclusion) Patient has history of Heart Transplant or Left Ventricular Assistive Device?: No IF YES, STOP HERE Heart Failure (Qualifier) Patient has current or prior documentation of LVEF less than or equal to 40%, or mod/servere depressed LVSF?: No IF NO, STOP HERE
[2024-11-04] MEDS: MULTIVITAMINS /C LUTEIN (CENTRUM SILVER) TABLET *BKC 1 TAB PO (09:33)
[2024-11-04] MEDS: FINASTERIDE 5 MG TABLET PO (09:33)
[2024-11-04] MEDS: DULoxetine HCL 60 MG CAPSULE.DR PO (09:33)
[2024-11-04] MEDS: BRIMONIDINE TARTRATE 0.2% OP SOLN 5 ML BTL 1 DROP RIGHT EYE (09:34)
[2024-11-04] MEDS: TIMOLOL MALEATE 0.5% OP SOLN 5 ML BOTTLE 1 DROP RIGHT EYE (09:34)
== END 2024-11-04 10:30 | disposition home or self-care (01) ==
LOC: ANHED 18:40 → ANHIMU 19:32 → ANH3MEDSUR 11-03 17:23
PROVIDERS: Student in an Organized Health Care Education/Training Program; Admitting Provider General Practice; Emergency Provider Emergency Medicine; PCP Family Medicine; Visit Provider General Practice
DX: R55 Syncope and collapse (principal); R00.1 Bradycardia, unspecified; N40.1 Benign prostatic hyperplasia with lower urinary tract symptoms; N13.8 Other obstructive and reflux uropathy; N32.81 Overactive bladder; E03.9 Hypothyroidism, unspecified; D64.9 Anemia, unspecified; I10 Essential (primary) hypertension; I42.9 Cardiomyopathy, unspecified; D32.0 Benign neoplasm of cerebral meninges; H40.9 Unspecified glaucoma; Z98.1 Arthrodesis status; Z66 Do not resuscitate; Z79.899 Other long term (current) drug therapy
CPT/HCPCS: 36415; 70450; 71046; 80053; 81001; 83735; 83880; 84443; 84484; 85025; 87086; 87181; 93005; 93306; 96361; 96374; 96375; 99285; A9270; G0378; J7030